=== PATIENT | female | born 1945 | race Caucasian/White ===

== ENCOUNTER → 2018-06-10 17:54 | Outpatient (CLI) | payer MEDICARE, SELFPAY ==
[2018-06-10 18:28] LABS: Absolute Lymphocyte Count 2.64 X10^3/ul (0.83-4.51); Absolute Neutrophil Count 4.7 X10^3/uL (2.0-7.7); Basophil# 0.02 X10^3/uL; Basophil% 0.2 % (0-1); Eosinophil# 0.17 X10^3/uL; Hematocrit 39.1 % (37-47); Hemoglobin 12.8 g/dl (12.0-15.0); Lymphocyte # 2.64 X10^3/ul (4.0); Lymphocyte % 30.8 % (19-41); Mean Corp Hgb Conc 32.7 g/gl (32-36); Mean Corpuscular Hgb 30.5 pg (27.0-32.0); Mean Corpuscular Volume 93.3 fL (81-99); Monocyte# 1.06 X10^3/uL; Monocyte% 12.4 % (0-10); Neutrophil # 4.66 X10^3/uL (2.7-7.7); Neutrophil % 54.5 % (47-70); Platelet Count 175 K/mm3 (150-450); RBC Distribution Width CV 12.6 % (11.6-14.6); Red Blood Count 4.19 M/mm3 (4.2-5.4); White Blood Count 8.6 K/mm3 (4.4-11.0)
[2018-06-10 18:31] LABS: POSITIVE COUNT NO; POSITIVE DIFFERENTIAL NO; POSITIVE MORPHOLOGY NO
[2018-06-10 19:10] LABS: ALB/GLOB Ratio 0.7 RATIO (0.9-2.4); AST(SGOT) 15 U/L (15-37); Alanine Aminotransfer ALT/SGPT 26 U/L (13-56); Albumin, Serum 3.2 g/dL (3.2-5.0); Alkaline Phosphatase 74 U/L (45-117); Anion Gap 7 (5-15); BUN 13 mg/dL (7-18); BUN/Creat Ratio 10.3 RATIO (10-20); Calcium,Total 8.9 mg/dL (8.5-10.1); Chloride 103 mmol/L (98-107); Creatinine, Serum 1.26 mg/dL (0.55-1.02); EST Glomerular Filtration Rate 44 mL/min (>60); Est Glom Filt Rate - Afr Amer 53 mL/min (>60); Globulin 4.5 g/dL (2.2-4.2); Glucose 145 mg/dL (74-106); Protein, Total 7.7 g/dL (6.4-8.2); Sodium Level 139 mmol/L (136-145); Uric Acid 6.2 mg/dL (2.6-6.0)
== END ==
PROVIDERS: Family Provider Internal Medicine; PCP Internal Medicine; Visit Provider Podiatrist
DX: M10.072 Idiopathic gout, left ankle and foot (principal); M19.072 Primary osteoarthritis, left ankle and foot
CPT/HCPCS: 80053; 84550; 85025

== ENCOUNTER 2018-06-22 21:34 | Emergency (ER) | payer MEDICARE, SELFPAY ==
[2018-06-22 21:35] VITALS: BP 143/93; PULSE 124; RESP 15; O2SAT 98; BMI 34.9
[2018-06-22 21:43] VITALS: O2SAT 98
[2018-06-22] MEDS: Aspirin 81 MG TAB.CHEW 324 MG PO (21:56)
[2018-06-22] MEDS: 0.9% Normal Saline 1,000 ML 150 ML IV (21:56)
[2018-06-22] MEDS: dilTIAZem 25 MG/5 ML Vial 20 MG IV BOLUS (21:56)
[2018-06-22 22:05] LABS: Absolute Lymphocyte Count 2.88 X10^3/ul (0.83-4.51); Absolute Neutrophil Count 5.6 X10^3/uL (2.0-7.7); Basophil# 0.04 X10^3/uL; Basophil% 0.4 % (0-1); Lymphocyte # 2.88 X10^3/ul (4.0); Lymphocyte % 29.1 % (19-41); Mean Corp Hgb Conc 31.7 g/gl (32-36); Mean Corpuscular Hgb 29.8 pg (27.0-32.0); Mean Platelet Vol. 12.4 fl (6.2-12.0); Monocyte# 1.16 X10^3/uL; Monocyte% 11.7 % (0-10); Neutrophil # 5.58 X10^3/uL (2.7-7.7); Neutrophil % 56.6 % (47-70); Platelet Count 190 K/mm3 (150-450); RBC Distribution Width CV 12.9 % (11.6-14.6); RBC Distribution Width SD 44.5 fl (35.1-43.9); Red Blood Count 4.36 M/mm3 (4.2-5.4); White Blood Count 9.9 K/mm3 (4.4-11.0)
[2018-06-22 22:06] LABS: POSITIVE COUNT NO; POSITIVE DIFFERENTIAL NO; POSITIVE MORPHOLOGY NO
[2018-06-22 22:24] LABS: Anion Gap 10 (5-15); BUN 20 mg/dL (7-18); BUN/Creat Ratio 13.4 RATIO (10-20); Calcium,Total 9.1 mg/dL (8.5-10.1); Chloride 102 mmol/L (98-107); Creatinine, Serum 1.49 mg/dL (0.55-1.02); EST Glomerular Filtration Rate 36 mL/min (>60); Est Glom Filt Rate - Afr Amer 44 mL/min (>60); Estimated Creatinine Clearance 33.92 ml/min; Glucose 210 mg/dL (74-106); Potassium 4.2 mmol/L (3.5-5.1); Sodium Level 138 mmol/L (136-145)
[2018-06-22 22:34] VITALS: BP 117/69; PULSE 63; RESP 18; O2SAT 97
[2018-06-22 23:00] VITALS: BP 123/56; PULSE 61; RESP 18; O2SAT 97
--- NOTE | 2018-06-22 23:20 | ED.RN ---
at approx 2245 pt converted to NSR. Called for repeat EKG and Dr De Leon made aware.
--- NOTE | 2018-06-22 23:33 | ED.VISSUMM ---
- ER Visit Summary Date of Service: 06/22/18 Chief Complaint: Chest pain and palpitations History of Present Illness: The patient is a [address] Morfin and Dr. Westfall. She has a history of paroxysmal SVT. She reports at 7:00 this evening while at rest she had the abrupt onset of palpitations. This is accompanied by a chest pressure. She reports this is 8 out of 10 severity at worst 5-10 currently. Is worsened by nothing including exertion. It is also relieved by nothing. She does report she feels mildly short of breath. No nausea, vomiting, or diaphoresis. Physical Examination: Vitals: Stable. Afebrile. General: Well-nourished and well-developed. Head: Normocephalic atraumatic. Neck: Supple, no lymphadenopathy. No JVD. Nontender. Cardiovascular: Tachycardic irregular rhythm no murmurs. Respiratory: No respiratory distress. Clear to auscultation bilaterally. Abdominal: Soft, nontender, nondistended, normal bowel sounds. No guarding, rebound, or peritoneal signs. Back: Nontender. Extremities: Nontender, no edema. Skin: Normal color, no rash. Neurologic: Alert and oriented ?3. Cranial nerves II through XII are intact. Normal strength and sensation. Psych: Normal affect. Test Results: EKG is atrial flutter at [address] changes. Repeat EKG is sinus at [address] changes. Troponin is negative. Chem-7 is more for BUN of 20, creatinine 1.49, glucose of 210. CBC is more for monocytes 12. Chest x-ray is rotated, but shows no acute disease. Emergency Department Course and Treatment: Patient history of aspirin p.o. She was given a dose of Cardizem IV. She converted shortly after this. Treatment Plan: Patient feels well and would like to go home. She was discussed with Dr. Kay. She will be discharged instructed to follow-up with Dr. Westfall and discuss this episode with him. Also discussed possibility of needing to be anticoagulated for her paroxysmal atrial fibrillation. Return to the emergency department for any worsening symptoms. Disposition: To home in improved and stable condition. Impression: 1. Atrial fibrillation with RVR. 2. Spontaneous conversion after Cardizem IV. 3. Critical care time 30 minutes. This note was generated with Dragon dictation software. It may contain incorrect words, spelling, and punctuation that were not noted in review of the chart prior to signing ED Disposition - Plan for ED Patient: Disposition: Home or Assisted Living Chief Complaint: Chest Pain Instructions: ED Paroxysmal Atrial Flutter Referrals: Guero Westfall MD [STAFF PHYSICIAN] - 5-7 Days
[2018-06-22 23:43] VITALS: BP 125/66; PULSE 68; RESP 16; O2SAT 98
== END 2018-06-22 23:43 | disposition home or self-care (01) ==
LOC: ED 22:19
PROVIDERS: Emergency Provider Emergency Medicine; Family Provider Internal Medicine; PCP Internal Medicine
DX: I48.0 Paroxysmal atrial fibrillation (principal); I48.92 Unspecified atrial flutter; I10 Essential (primary) hypertension; E78.00 Pure hypercholesterolemia, unspecified; E11.9 Type 2 diabetes mellitus without complications; M10.9 Gout, unspecified; Z79.82 Long term (current) use of aspirin; Z79.84 Long term (current) use of oral hypoglycemic drugs; Z79.01 Long term (current) use of anticoagulants; Z79.899 Other long term (current) drug therapy
CPT/HCPCS: 71045; 80048; 84484; 85025; 93005; 96361; 96374; 99284; J7030; J7040; A4216

== ENCOUNTER 2018-06-23 05:28 | Inpatient (IN) | payer MEDICARE, SELFPAY ==
[2018-06-23] VITALS (19 sets, daily range): BP systolic 99–172; BP diastolic 51–94; PULSE 54–154; RESP 8–20; TEMP 36.6–36.8; O2SAT 94–100; BMI 35.9; BMI 36.1
--- NOTE | 2018-06-23 05:43 | ED.VISSUMM ---
- ER Visit Summary Date of Service: 06/23/18 Chief Complaint: Palpitations, chest pain History of Present Illness: The patient is a 72 F palpitations and chest pain awakening her 2:30 PM. Mild dyspnea and mild nausea. Pain into left shoulder blade. History of paroxysmal SVT followed by Dr. Westfall. Patient on metoprolol 150 mg. Stress test a couple years ago no history of heart cath. No history of [place]. Patient seen here earlier in the ED less than 12 hours ago similar symptoms ported A. fib a flutter. She converted after Cardizem IV. States her chest pain symptoms went away at that time. 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 It is a mild nonproductive cough. No tobacco history. History of hypertension, diabetes, hypercholesterolemia. Records reviewed, noted atrial flutter/atrial fibrillation. 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 Discuss anticoagulation however none was started. Troponin was negative. Creatinine is 1.49. CBC is normal. Chest x-ray no infiltrates. Physical Examination: General: Alert and oriented ?3, no acute distress HEENT: Normocephalic, atraumatic. Moist mucosa membranes Neck: supple, nontender. Cardiovascular: Irregular rate and rhythm, no murmurs Respiratory: Normal breath sounds, symmetric, no distress Abdomen: Soft, nontender, nondistended Extremities: Nontender, no edema, pulses intact ?4 Neuro: no focal neurological deficits. Test Results: EKG atrial fibrillation rate of 143, slight ST depressions V4 V5 less than 1 mm. Troponin: 0.015. INR 1. PTT 30. Emergency Department Course and Treatment: Patient with recurrent A. fib with RVR on EKG. This is nonspecific ST depressions V4 V5. Presents also with chest pain. She received aspirin less than 12 hours ago on her first visit in the ED. Initial troponin was negative. I repeated troponin IX hours from the first 1, this remained negative. Given Cardizem IV 10 mg, reported worsening chest pain symptoms after initial dose. I did repeat an EKG noting atrial flutter rate of 153 with no new changes. Cardizem drip was started, states there is mild improvement of symptoms, however heart rate did not improve. Blood pressure was stable. The drip was increased to 25 mg/h, she was comfortable however reports continued chest pain up to 7-8 out of 10. Further discussion patient reports onset of symptoms was 7 PM, less than 12 hours prior to arrival. I discussed due to her symptoms for direct current cardioversion for which she agreed. Consents were obtained, risks and benefits discussed. Patient was given fentanyl and Versed, cardioverted at 150 J ?1 attempt. Repeat EKG sinus rate of 58, there is still nonspecific depressions in V3 to V5. There is no elevations. Discuss with hospitalist for admission to PCU due to recurrent atrial fibrillation and chest pain. Patient was given Lovenox subcu with a chads score of 2 currently. Treatment Plan: [] Disposition: Admission Impression: 1. Recurrent A. fib with RVR 2. Status post DCCV 3. Chest pain This note was generated with APROOF[employer] dictation software. It may contain incorrect words, spelling, and punctuation that were not noted in review of the chart prior to signing ED Disposition - Plan for ED Patient: Disposition: Acute Care Hospital [facility] Chief Complaint: Palpitations Diagnosis: Atrial fibrillation and flutter, Direct current cardioversion, Chest pain Referrals: Nikita Morfin MD [Primary Care Provider] -
[2018-06-23] MEDS: dilTIAZem 25 MG/5 ML Vial 10 MG IV BOLUS (05:47)
[2018-06-23 06:20] LABS: Prothrombin Time (Protime)PT. 12.8 SECONDS (11.7-14.9)
[2018-06-23] MEDS: fentaNYL 100 MCG/2 ML Ampul IV (07:14)
[2018-06-23] MEDS: Midazolam 2 MG/2 ML Syringe IV (07:15)
[2018-06-23] MEDS: Enoxaparin 120 MG/0.8 ML Syringe SC (07:27)
[2018-06-23] MEDS: Ondansetron 4 MG/2 ML Vial IV (07:40)
--- NOTE | 2018-06-23 09:30 | PCM.HP.STD ---
Problem List (1) Atrial fibrillation and flutter Status: Acute (2) Chest pain Status: Acute (3) CKD (chronic kidney disease) Status: Chronic (4) PSVT (paroxysmal supraventricular tachycardia) Status: Chronic (5) Hyperlipidemia Status: Chronic Qualifiers: (6) Benign essential HTN Status: Chronic (7) Borderline diabetes mellitus Status: Chronic History of Present Illness Date of Admission: 06/23/18 Chief Complaint: Chest pain. The patient is a 72 year old F with past medical history as mentioned above presented to the emergency department because of chest pain. Her illness started yesterday evening around 7 PM when she was watching TV, started having left-sided chest pain, extends to the left shoulder blade, squeezing pain, 6 or 7 severity, associated with mild shortness of breath and palpitation and without aggravating or relieving factors. She does have history of paroxysmal SVT and she was instructed to use ice pack on her neck as well as to take an extra tablet of metoprolol when she has those episodes of chest pain with palpitation. Those 2 measures did not improve her chest pain yesterday. She came to the emergency department, was evaluated, started on IV Cardizem drip and she converted back to sinus rhythm and she was discharged home. Around 12:30 AM this morning, she woke up from sleep because of chest pain which is similar episode that happened yesterday evening with left-sided chest pain, squeezing pain, 8 oxygen severity, that was compared to yesterday, associated with palpitation and mild shortness of breath and without aggravating or relieving factors. In the emergency department, she was found to be in atrial flutter with RVR, heart rate has been in the 150s. She was started on IV Cardizem drip and continued to have chest pain for which cardioversion indicated. She underwent direct current cardioversion and she converted back to sinus rhythm. Initial EKG upon arrival to ER revealed atrial flutter with RVR, rate was in the 150s and without acute ischemic changes. Repeat EKG after the cardioversion revealed normal sinus rhythm without evidence of acute ischemic changes. Routine blood work from yesterday reviewed, revealed creatinine 1.49, otherwise normal. Troponin was negative. Chest x-ray showed probable minimal pulmonary vascular congestion more on the right side. She is being admitted for atrial flutter with RVR status post cardioversion and chest pain. Past Medical History Past Medical History (Chronic Problems): Chronic Problems (Last Updated 04/10/18 @ 14:14 by Citlaly Diaz) CKD (chronic kidney disease) (Chronic) PSVT (paroxysmal supraventricular tachycardia) (Chronic) Hyperlipidemia (Chronic) Benign essential HTN (Chronic) Borderline diabetes mellitus (Chronic) Medical History: Medical History (Last Updated 04/10/18 @ 14:14 by Citlaly Diaz) CKD (chronic kidney disease) (Chronic) N18.9 PSVT (paroxysmal supraventricular tachycardia) (Chronic) I47.1 Hyperlipidemia (Chronic) E78.5 Benign essential HTN (Chronic) I10 Borderline diabetes mellitus (Chronic) R73.03 Back pain M54.9 Hip pain M25.559 EMILIANO (obstructive sleep apnea) G47.33 Osteoarthritis M19.90 History of echocardiogram Onset Date: ~12/2012 Z92.89 EF: 57% @ [facility] Allergies codeine Adverse Reaction (Severe, Verified 06/23/18 05:32) Mental status change erythromycin base Adverse Reaction (Severe, Verified 06/23/18 05:32) Vomiting Home Medications: Ambulatory Orders Medication Instructions Recorded aspirin 81 mg tablet,delayed 81 mg PO QDAY 10/09/17 release atorvastatin 10 mg tablet 10 mg PO QHS 10/09/17 fluticasone 50 mcg/actuation nasal 100 mcg INTRANASAL QDAY PRN 10/09/17 spray,suspension metformin 500 mg tablet 500 mg PO BID 10/09/17 metoprolol tartrate 100 mg tablet 150 mg PO BID tab 10/09/17 multivitamin tablet 1 tab PO QDAY 10/09/17 [id number]-[id number]-hrb 1 tab PO QDAY ea 10/10/17 149-hyalur 500 mg-500 mg-66.7 mg tablet Losartan Potassium [Losartan 100 mg PO DAILY 06/23/18 Potassium] Surgical History: Surgical History (Last Reviewed 04/10/18 @ 14:13 by Citlaly Diaz) H/O arthroscopy of left knee Z98.890 History of dilation and curettage Z98.890 History of umbilical hernia repair Z98.890, Z87.19 S/P foot surgery, right Z98.890 History of appendectomy Z98.890, Z90.49 Surgical History: arthroscopy, knee, herniorrhaphy, - - D&C. 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 Lives: Spouse/ Significant Other Smoking Status: Never smoker Alcohol: None Drugs: None - *Family History Maternal Family History: Family History (Last Reviewed 04/10/18 @ 14:13 by Citlaly Diaz) Mother Hypertension Father CAD (coronary artery disease) History Items: No pertinent history Paternal Family History: Family History (Last Reviewed 04/10/18 @ 14:13 by Citlaly Diaz) Mother Hypertension Father CAD (coronary artery disease) History Items: No pertinent history Review of Systems Constitutional: Denies: Anorexia, Chills, Fever, Weakness Eyes: Denies: Blurred vision, Double vision, Drainage HEENT: Denies: Difficulty Hearing, Ear Pain, Eye Pain, Nasal Congestion, Sore Throat Cardiovascular: Reports: Chest Pain, Chest Pressure, Palpitations. Denies: Heaviness, Light Headedness, Paroxysmal Noc. Dyspnea, Syncope Respiratory: Reports: Shortness of Breath. Denies: Cough, Pleuritic Pain, Sputum production, Wheezing Gastrointestinal: Denies: Abdominal Pain, Constipation, Diarrhea, Nausea, Vomiting Genitourinary: Denies: Dysuria, Frequency, Hematuria Musculoskeletal: Denies: Arm Pain, Back Pain, Foot Pain Skin: Denies: Dryness, Rash Neurological: Denies: Balance problems, Double vision, Change in Speech, Slurred speech, Confusion, Headaches, Incoordination, Tingling Psychiatric: Denies: Anxiety, Depression Endocrine: Denies: Change in Body Habitus, Polydipsia VTE Information - Inpt Only VTE Present on Admission: No VTE Mechan Device Prophylaxis: None VTE Pharm Prophylaxis ordered?: No Patient Problems: Active and Suspected Problems (Last Updated 06/23/18 @ 09:42 by Nicole Lau MD) Atrial fibrillation and flutter (Acute) Chest pain (Acute) - Physical Exam General: Alert, Oriented x3, Cooperative, No apparent distress HEENT: Atraumatic, PERRLA, EOMI, Normocephalic Oral: Moist Mucosa, No Gingival or Mucosal Lesions/ Ulcerations Neck: Supple, No JVD, Negative Carotid Bruits, Trachea Midline, Thyroid Normal Size and Texture Lungs: Clear to auscultation, No rhonchi, No wheeze, No rales, Diminished Cardiovascular: Regular rate, Regular Rhythm, Normal S1, Normal S2, PMI Normal Abdomen: Bowel Sounds Present, Soft, Non Tender, Non-Distended, No Hepato-splenomegaly Extremities: No clubbing, No cyanosis, No edema Skin: No rashes, No breakdown Musculoskeletal: No Tenderness to Palpation of Joints or Extremities Lymphatic: No Cervical, Supraclavicular, or Inguinal Adenopathy Neurological: Cranial nerves II-XII grossly intact, Motor Exam 5/5 strength throughout Psych/Mental Status: Normal Affect, Appropriate, Alert and oriented to time, place, person, mood and affect Vital Signs Temp Pulse Resp BP Pulse Ox 98.0 F 60 20 H 99/52 L 98 06/23/18 08:11 06/23/18 08:11 06/23/18 08:11 06/23/18 08:11 06/23/18 08:11 Oxygen Flow Rate (L/min) 2 Oxygen Delivery Method Nasal Cannula Weight: 230 lb 9.656 oz Body Mass Index (BMI) 36.1 Laboratory Tests Past 24 Hrs 06/23/18 06/23/18 08:28 08:28 Magnesium Pending Troponin I 0.025 TSH Pending Laboratory Tests 06/23/18 06/23/18 06/23/18 Range/Units 08:28 08:28 05:35 PT 12.8 (11.7-14.9) SECONDS INR 1.0 APTT 30.0 (24.1-36.2) Seconds Magnesium 1.2 L (1.6-2.6) mg/dL Troponin I 0.025 (<0.045) ng/mL TSH 3.28 (0.358-3.74) uIU/mL 06/23/18 Range/Units 05:35 PT (11.7-14.9) SECONDS INR APTT (24.1-36.2) Seconds Magnesium (1.6-2.6) mg/dL Troponin I < 0.015 (<0.045) ng/mL TSH (0.358-3.74) uIU/mL Assessment/Plan All Active Problems (Last Updated 06/23/18 @ 09:42 by Nicole Lau MD) Atrial fibrillation and flutter (Acute) Chest pain (Acute) This is a 72 years old female patient presented to the emergency department because of chest pain and palpitation, found to have atrial flutter with RVR, was treated with IV Cardizem drip, has been having persistent chest pain for which cardioversion indicated and she underwent direct current cardioversion that resulted normal sinus rhythm. #1 atrial flutter with RVR: Status post cardioversion, converted back to sinus rhythm and now she is in sinus rhythm, heart rate has been 60s, blood pressure stable. Initially, heart rate was in the 150s. Initial EKG revealed atrial flutter with RVR, no acute ischemic changes. Repeat EKG after cardioversion revealed normal sinus rhythm, no acute ischemic changes. At this time, chest pain significantly improved. Her vital signs are stable. Troponin was negative. Routine blood work from yesterday reviewed, revealed potassium of 4.2 which is normal, creatinine 1.49, otherwise normal. Chest x-ray showed possible minimal pulmonary vascular congestion on the right side. Plan: Admit to PCU, cardiac monitoring, serial cardiac enzymes, repeat EKG tomorrow morning, continue metoprolol for rate control, start renally adjusted dose of therapeutic Lovenox, IV fluids, replace magnesium, TSH, 2D echocardiogram, repeat CBC and BMP tomorrow morning, cardiology consult, PT OT evaluation and treatment. #2 chest pain: This is probably secondary to above, underlying CAD, be ruled out. EKG post cardioversion revealed normal sinus rhythm without evidence of acute ischemic changes. Troponin is negative. Plan: Cardiac monitoring, serial cardiac enzymes, repeat EKG tomorrow morning, 2D echocardiogram, as needed sublingual nitroglycerin, Tylenol as needed. #3 hypomagnesemia: Replace magnesium with IV magnesium sulfate, repeat serum next morning. Serum potassium is normal. #4 chronic kidney disease: Appeared to be stage III. She has only 3 BMPs in her chart. Her creatinine on July, was 1.1, on May, it was 1.26 and today is 1.49. Plan: Gentle IV fluids for hydration, input output chart, repeat BMP tomorrow morning. #5 history of paroxysmal SVT: She has been on metoprolol at home. At this time, she is in a flutter with RVR. #6 hypertension: Blood pressure stable, continue losartan and metoprolol. #7 type 2 diabetes mellitus: ADA diet, Accu-Cheks, insulin sliding scale, hold metformin. #8 hyperlipidemia: Continue statins. #9 DVT prophylaxis: Therapeutic subcu Lovenox. This note was generated with Pi-Cardia dictation software. It may contain incorrect words, spelling, and punctuation that were not noted in checking the note before signing. Code Visit Inpatient E&M: 97782 Init Hosp L3
[2018-06-23 09:34] LABS: Magnesium 1.2 mg/dL (1.6-2.6); Thyroid Stim Hormone (TSH) 3.28 uIU/mL (0.358-3.74)
[2018-06-23] MEDS: Metoprolol Tartrate 100 MG Tablet 150 MG PO ×2 (10:23→21:09)
[2018-06-23] MEDS: 0.9% Normal Saline 1,000 ML 75 ML IV (10:23)
[2018-06-23] MEDS: Losartan Potassium 100 MG Tablet PO (10:23)
[2018-06-23] MEDS: Aspirin E.C. 81 MG Tablet PO (10:23)
[2018-06-23] MEDS: CLARIFY ORDER NOTE (10:37)
--- NOTE | 2018-06-23 12:25 | PCM.CONS.C ---
Problem List (1) Atrial fibrillation and flutter Status: Acute (2) Paroxysmal atrial flutter Status: Acute Reason for Consult Date of Consultation: 06/23/18 History of Present Illness: The patient is a 72 year old F with past medical history as mentioned above presented to the emergency department because of chest pain. Her illness started yesterday evening around 7 PM when she was watching TV, started having left-sided chest pain, extends to the left shoulder blade, squeezing pain, 6 or 7 severity, associated with mild shortness of breath and palpitation and without aggravating or relieving factors. She does have history of paroxysmal SVT and she was instructed to use ice pack on her neck as well as to take an extra tablet of metoprolol when she has those episodes of chest pain with palpitation. Those 2 measures did not improve her chest pain yesterday. She came to the emergency department, was evaluated, started on IV Cardizem drip and she converted back to sinus rhythm and she was discharged home. Around 12:30 AM this morning, she woke up from sleep because of chest pain which is similar episode that happened yesterday evening with left-sided chest pain, squeezing pain, 8 oxygen severity, that was compared to yesterday, associated with palpitation and mild shortness of breath and without aggravating or relieving factors. In the emergency department, she was found to be in atrial flutter with RVR, heart rate has been in the 150s. She was started on IV Cardizem drip and continued to have chest pain for which cardioversion indicated. She underwent direct current cardioversion and she converted back to sinus rhythm. Initial EKG upon arrival to ER revealed atrial flutter with RVR, rate was in the 150s and without acute ischemic changes. Repeat EKG after the cardioversion revealed normal sinus rhythm without evidence of acute ischemic changes. Routine blood work from yesterday reviewed, revealed creatinine 1.49, otherwise normal. Troponin was negative. Chest x-ray showed probable minimal pulmonary vascular congestion more on the right side. She was admitted for atrial flutter with RVR status post cardioversion and chest pain. A tthe time of my interview at 12:30 she was asymptomatic and in NSR Past Medical History Allergies/Adverse Reactions: Allergies codeine Adverse Reaction (Severe, Verified 06/23/18 05:32) Mental status change erythromycin base Adverse Reaction (Severe, Verified 06/23/18 05:32) Vomiting Home Medications: Ambulatory Orders Medication Instructions Recorded aspirin 81 mg tablet,delayed 81 mg PO QDAY 10/09/17 release atorvastatin 10 mg tablet 10 mg PO QHS 10/09/17 fluticasone 50 mcg/actuation nasal 1 spray INTRANASAL QDAY 10/09/17 spray,suspension metformin 500 mg tablet 500 mg PO BID 10/09/17 metoprolol tartrate 100 mg tablet 150 mg PO BID tab 10/09/17 multivitamin tablet 1 tab PO QDAY 10/09/17 [id number]-ewf-[id number]-hrb 1 tab PO QDAY ea 10/10/17 149-hyalur 500 mg-500 mg-66.7 mg tablet Losartan Potassium [Losartan 100 mg PO DAILY 06/23/18 Potassium] Past Medical History (Chronic Problems): Chronic Problems (Last Updated 06/23/18 @ 09:42 by Nicole Lau MD) CKD (chronic kidney disease) (Chronic) PSVT (paroxysmal supraventricular tachycardia) (Chronic) Hyperlipidemia (Chronic) Benign essential HTN (Chronic) Borderline diabetes mellitus (Chronic) Surgical History: arthroscopy, knee, herniorrhaphy, - - D&C. 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 - *Family History Maternal Family History: Family History (Last Reviewed 04/10/18 @ 14:13 by Citlaly Diaz) Mother Hypertension Father CAD (coronary artery disease) History Items: No pertinent history Paternal Family History: Family History (Last Reviewed 04/10/18 @ 14:13 by Citlaly Diaz) Mother Hypertension Father CAD (coronary artery disease) History Items: No pertinent history Lives: Spouse/ Significant Other Smoking Status: Never smoker Alcohol: None Drugs: None Review of Systems - Review of Systems General: Denies: Fever, Night Sweats, Fatigue Cardiovascular: Denies: Chest Discomfort, Shortness of Breath, Orthopnea, PND, Peripheral Edema, Palpitations - 12 system reviewed. Pertinent positive and negative ones are per HPI., Lightheadedness, Dizziness, Near Syncope, Syncope Respiratory: Denies: Cough, Sputum Production, Hemoptysis Gastrointestinal: Denies: Hematemesis, Hematochezia, Melena Genitourinary: Denies: Dysuria, Hematuria Skin: Denies: Rash Objective: Vital Signs Temp Pulse Resp BP Pulse Ox 98.0 F 67 20 H 99/52 L 98 06/23/18 08:11 06/23/18 11:00 06/23/18 08:11 06/23/18 08:11 06/23/18 08:11 Oxygen Flow Rate (L/min) 2 Oxygen Delivery Method Nasal Cannula Weight: 104.6 kg Body Mass Index (BMI) 36.1 General: Oriented x 3, No Acute Distress HEENT: Atraumatic Neck: Supple, No JVD Lungs: Clear to auscultation Cardiovascular: Regular Rhythm, No Murmurs Vascular: No Carotid Bruits Abdomen: Soft, Non Tender, Obese Extremities: No Cyanosis, No edema Musculoskeletal: No Tenderness Skin: No Rashes Neurological: No Focal Motor or Sensory Deficit Psych/Mental Status: Appropriate 06/23/18 08:28: Magnesium 1.2 L 06/23/18 08:28: Troponin I 0.025 Rhythm: EKG: A. Flutter, converted to Sinus, ECHO: Stress Test: Cardiac Cath: PCI: CT Surgery: Holter monitor: EPS: PPM: CXR: Chest CT Scan: Assessment/Plan Paroxysmal A. Flutter, [id number]: 4. Suggest Oral ,eds for Rate , paroxesm control. Adding CCB, i.e. Verapamil SR, 1290 mg daily, adjust BB for BP, HR control. Suggest full anticoagulation, discussed in detail, patient agreeable with NOAC, suggest Xarelto, 20 mg daily. DC home per attending. FU with Dr. Malou ritchie 2-3 weeks.
[2018-06-23 12:51] LABS: Bedside Glucose 137 mg/dL (70-110)
[2018-06-23 16:56] LABS: Bedside Glucose 107 mg/dL (70-110)
[2018-06-23] MEDS: Rivaroxaban 15 MG Tablet PO (19:02)
[2018-06-23] MEDS: Atorvastatin Calcium 10 MG Tablet PO (21:09)
[2018-06-23 21:15] LABS: Bedside Glucose 138 mg/dL (70-110)
[2018-06-24] VITALS (9 sets, daily range): BP systolic 131–133; BP diastolic 63–67; PULSE 61–74; RESP 18; TEMP 36.8–37.2; O2SAT 96–98
[2018-06-24] MEDS: 0.9% Normal Saline 1,000 ML 75 ML IV (00:47)
[2018-06-24 06:21] LABS: Bedside Glucose 120 mg/dL (70-110)
[2018-06-24 06:23] LABS: Absolute Lymphocyte Count 2.23 X10^3/ul (0.83-4.51); Absolute Neutrophil Count 3.5 X10^3/uL (2.0-7.7); Basophil# 0.03 X10^3/uL; Basophil% 0.5 % (0-1); Eosinophil# 0.19 X10^3/uL; Eosinophils% 2.9 % (0-5); Hematocrit 35.8 % (37-47); Hemoglobin 11.5 g/dl (12.0-15.0); Lymphocyte # 2.23 X10^3/ul (4.0); Lymphocyte % 33.7 % (19-41); Mean Corp Hgb Conc 32.1 g/gl (32-36); Mean Corpuscular Hgb 30.5 pg (27.0-32.0); Mean Platelet Vol. 12.4 fl (6.2-12.0); Monocyte# 0.68 X10^3/uL; Monocyte% 10.3 % (0-10); Neutrophil # 3.47 X10^3/uL (2.7-7.7); Neutrophil % 52.3 % (47-70); Platelet Count 133 K/mm3 (150-450); RBC Distribution Width CV 12.8 % (11.6-14.6); RBC Distribution Width SD 42.9 fl (35.1-43.9); Red Blood Count 3.77 M/mm3 (4.2-5.4); White Blood Count 6.6 K/mm3 (4.4-11.0)
[2018-06-24 06:32] LABS: POSITIVE COUNT NO; POSITIVE DIFFERENTIAL NO; POSITIVE MORPHOLOGY NO
[2018-06-24 06:56] LABS: Anion Gap 9 (5-15); BUN 13 mg/dL (7-18); BUN/Creat Ratio 10.8 RATIO (10-20); Chloride 109 mmol/L (98-107); EST Glomerular Filtration Rate 47 mL/min (>60); Est Glom Filt Rate - Afr Amer 57 mL/min (>60); Glucose 115 mg/dL (74-106); Potassium 4.1 mmol/L (3.5-5.1); Sodium Level 145 mmol/L (136-145)
[2018-06-24] MEDS: Metoprolol Tartrate 100 MG Tablet 150 MG PO (09:09)
[2018-06-24] MEDS: Losartan Potassium 100 MG Tablet PO (09:09)
[2018-06-24] MEDS: dilTIAZem CD 120 MG Capsule PO (09:09)
[2018-06-24] MEDS: Aspirin E.C. 81 MG Tablet PO (09:09)
--- NOTE | 2018-06-24 10:27 | PCM.DC ---
- Discharge Diagnoses Current Active Problems: Current Active and Chronic Problems (Last Updated 06/23/18 @ 09:42 by Nicole Lau MD) Paroxysmal atrial flutter (Acute) Atrial fibrillation and flutter (Acute) Chest pain (Acute) You will use the following diet at home:: Calorie/Carbohydrate Controlled (specify 1200, 1400, etc) - 1800 KATHARINE., Cardiac Your food should be the consistency of: Regular Discharge Activity: Return to Normal Activity Weight Bearing Status: Weight bearing as tolerated Call your doctor if you observe: Fever of 101 or Higher, Shortness of breath, Dizziness, Fainting spells, Chest pain, Increased palpitations (irregular heartbeat), Uncontrolled pain Instructions: Rivaroxaban Oral tablet, What Is Atrial Flutter/Atrial Fibrillation? Allergies/Adverse Reactions: Allergies codeine Adverse Reaction (Severe, Verified 06/23/18 05:32) Mental status change erythromycin base Adverse Reaction (Severe, Verified 06/23/18 05:32) Vomiting Medications to take at Discharge aspirin 81 mg tablet,delayed release 81 mg PO QDAY 10/09/17 atorvastatin 10 mg tablet 10 mg PO QHS 10/09/17 fluticasone 50 mcg/actuation nasal spray,suspension 1 spray INTRANASAL QDAY 10/09/17 metformin 500 mg tablet 500 mg PO BID 10/09/17 metoprolol tartrate 100 mg tablet 150 mg PO BID tab 10/09/17 multivitamin tablet 1 tab PO QDAY 10/09/17 lcmivrybwao-aon-rhrzculee-hrb 149-hyalur 500 mg-500 mg-66.7 mg tablet 1 tab PO QDAY ea 10/10/17 Losartan Potassium 100 mg PO DAILY 06/23/18 Diltiazem CD [Cardizem CD] 120 mg PO DAILY #30 cap 06/24/18 Rivaroxaban [Xarelto] 15 mg PO DAILY@1700 #90 tab 06/24/18 The following prescriptions were given: Diltiazem CD [Cardizem CD] 120 mg PO DAILY #30 cap Rivaroxaban [Xarelto] 15 mg PO DAILY@1700 #90 tab Primary Care Physician: Nikita Morfin MD [Primary Care Provider] - Please follow up with your Primary Care Physician in: 1 WEEK. Test Results: Test results from this visit will be discussed in further detail at your follow-up appointment, if applicable. Please Follow Up With: Moodispaw,Guero, MD When: please call his office.
--- NOTE | 2018-06-24 10:43 | CASEMGMT ---
Face to Face with patient for initial transition planning/care coordination assessment. [facility] introduced self and role at [facility], pt voices understanding and consents to assessment at this time. Pt is lying in bed in no distress at this time. Pt is A/O x4 at this time and answers all questions appropriately at this time. Care providers, pharmacy, and demographics verified. See attached link. Pt voices no further concerns/needs at this time. Advised pt to ask for CM if any further questions/concerns/needs arise, voices understanding. CM to check Xarelto for pt prior to discharge. SW to f/u with pt for AD info. PLAN: Home [facility]
[2018-06-24 11:30] LABS: Bedside Glucose 166 mg/dL (70-110)
--- NOTE | 2018-06-24 11:32 | CASEMGMT ---
Call to pt's pharmacy by Rex, charger, and per pharmacy, for one month of Xarelto, pt's co-pay will be over $200 and for 90 day supply over $300. Pt given 30 day free trial coupon at this time, voices understanding. Pt advised to f/u with Dr. Westfall in 2-3weeks in regards to anderson of med and ongoing afib and pt states she would like to make her own appt at this time after offer for this [facility] to set up appt prior to discharge. Also, advised pt that she can call [employer] to try and get a discount on co-pay, voices understanding. Message left with nurse at [facility] to notify them of pt co-pay. Pt provided Advance directive paperwork at this time and states would like to meet with SW to complete paperwork at this time. Yesenia HERNANDEZ aware and voices understanding. [facility]
--- NOTE | 2018-06-24 12:16 | CASEMGMT ---
Social Work Received a referral from RN JESUSITA that pt is interested in Advance Directives. 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 Pt affirms she wants to complete forms. SW assisted with completing forms. Copy placed on chart and original given to pt with instructions to give copy to PCP and person listed as HCPOA. No further questions at this time. SW remains available should needs arise. MISA Kessler
--- NOTE | 2018-06-24 15:18 | PCM.DC.SUM ---
Discharge Date and Diagnosis - Problem List Patient Problems: Active and Suspected Problems (Last Updated 06/23/18 @ 09:42 by Nicole Lau MD) Paroxysmal atrial flutter (Acute) Atrial fibrillation and flutter (Acute) Chest pain (Acute) Date of Admission: 06/23/18 Date of Discharge: 06/24/18 - Primary Discharge Diagnosis Active and Suspected Problems (Last Updated 06/23/18 @ 09:42 by Nicole Lau MD) #1 atrial flutter with RVR, status post cardioversion. #2 chest pain. #3 hypomagnesemia. - Secondary Discharge Diagnosis Chronic Problems (Last Updated 06/23/18 @ 09:42 by Nicole Lau MD) CKD (chronic kidney disease) (Chronic) PSVT (paroxysmal supraventricular tachycardia) (Chronic) Hyperlipidemia (Chronic) Benign essential HTN (Chronic) Borderline diabetes mellitus (Chronic) Hospital Course and Treatment Procedures: 2-D Echocardiogram, Cardioversion, EKG Summary of Care Provided: Patient seen and examined on the day of discharge and appeared to be stable to be discharged home. She remained asymptomatic, no complaint. She remained in sinus rhythm, rate is controlled, blood pressure stable. - Physical Exam General: Alert, Oriented x3, Cooperative, No apparent distress. HEENT: Atraumatic, PERRLA, EOMI. Neck: Supple, No JVD, Negative Carotid Bruits, Trachea Midline, Thyroid Normal. Lungs: Clear to auscultation, Normal air movement, No rhonchi, No wheeze, No rales. Cardiovascular: Regular rate, Regular Rhythm, Normal S1, Normal S2, PMI Normal. Abdomen: Bowel Sounds Present, Soft, Non Tender, Non-Distended, No Hepato-splenomegaly. Extremities: No clubbing, No cyanosis, No edema Skin: No rashes, No breakdown Neurological: Neuro grossly intact Vital Signs are stable. Hospital course: The patient is a 72 year old F presented to the emergency department because of chest pain and palpitation, found to have atrial flutter with RVR. Her EKG revealed atrial flutter with RVR and without acute ischemic changes. She was started on IV Cardizem drip and her chest pain did not improve and she continued to complain of persistent chest pain. Cardioversion dictated. She underwent direct current cardioversion which resulted in to conversion to normal sinus rhythm. Patient was admitted to the floor, monitored and she had serial cardiac enzymes which were negative. Her routine blood work was remarkable for creatinine of 1.49 which came down to 1.20 with IV fluids and she does have a history of chronic kidney disease. Her serum electrolytes including sodium potassium was normal but her magnesium was low. She received IV magnesium sulfate and her magnesium replaced and corrected. After cardioversion, patient remained in sinus rhythm, remained asymptomatic and her vital signs were stable. Cardiology consulted and recommended to start calcium channel blockers as well as Xarelto for anti-regulation. 2D echocardiogram revealed ejection fraction 65%, mild MR, mild TR, RVSP of 52. Patient discharged home in a stable medical condition, continued on metoprolol and started on Cardizem for rate control, started on Xarelto for anticoagulation, continued on her other home medications, recommended follow-up with PCP in 1 week and follow-up with cardiology in 2-3 weeks. Discharge Activity: Return to Normal Activity Weight Bearing Status: Weight bearing as tolerated Call your doctor if you observe: Fever of 101 or Higher, Shortness of breath, Dizziness, Fainting spells, Chest pain, Increased palpitations (irregular heartbeat), Uncontrolled pain Home Medications: Medications to take at Discharge aspirin 81 mg tablet,delayed release 81 mg PO QDAY 10/09/17 atorvastatin 10 mg tablet 10 mg PO QHS 10/09/17 fluticasone 50 mcg/actuation nasal spray,suspension 1 spray INTRANASAL QDAY 10/09/17 metformin 500 mg tablet 500 mg PO BID 10/09/17 metoprolol tartrate 100 mg tablet 150 mg PO BID tab 10/09/17 multivitamin tablet 1 tab PO QDAY 10/09/17 kofrsodzbvy-ooa-zrjyvmvdh-hrb 149-hyalur 500 mg-500 mg-66.7 mg tablet 1 tab PO QDAY ea 10/10/17 Losartan Potassium 100 mg PO DAILY 06/23/18 Diltiazem CD [Cardizem CD] 120 mg PO DAILY #30 cap 06/24/18 Rivaroxaban [Xarelto] 15 mg PO DAILY@1700 #90 tab 06/24/18 Following Prescrptions Were Given to Patient: Diltiazem CD [Cardizem CD] 120 mg PO DAILY #30 cap Rivaroxaban [Xarelto] 15 mg PO DAILY@1700 #90 tab Primary Care Physician: Nikita Morfin MD [Primary Care Provider] - Please follow up with your Primary Care Physician in: 1 WEEK. Please Follow Up With: Guero Westfall MD When: please call his office. Patient Instructions: Rivaroxaban Oral tablet, What Is Atrial Flutter/Atrial Fibrillation? Disposition: Home Minutes spent on discharge:: 28 Patient Condition:: Stable Medical Necessity - Tobacco Use Smoking Status: Never smoker Meaningful Use Info Meaningful Use Diagnoses (Choose all that apply): None applicable Code Visit Inpatient E&M: 49585 Disch Hosp
[2018-06-24] MEDS: Rivaroxaban 15 MG Tablet PO (16:18)
== END 2018-06-24 16:25 | disposition home or self-care (01) | DRG 310 ==
LOC: ED 05:42 → PCU 07:30
PROVIDERS: Admitting Provider Hospitalist; Emergency Provider Emergency Medicine; Family Provider Internal Medicine; PCP Internal Medicine; Visit Provider Hospitalist
DX: I48.92 Unspecified atrial flutter (principal); I12.9 Hypertensive chronic kidney disease with stage 1 through stage 4 chronic kidney disease, or unspecified chronic kidney disease; E78.5 Hyperlipidemia, unspecified; M19.90 Unspecified osteoarthritis, unspecified site; E83.42 Hypomagnesemia; N18.9 Chronic kidney disease, unspecified; R07.9 Chest pain, unspecified; I47.1 Supraventricular tachycardia; I48.0 Paroxysmal atrial fibrillation; E11.22 Type 2 diabetes mellitus with diabetic chronic kidney disease; Z79.01 Long term (current) use of anticoagulants; Z79.82 Long term (current) use of aspirin; Z79.84 Long term (current) use of oral hypoglycemic drugs; Z79.899 Other long term (current) drug therapy
CPT/HCPCS: 36415; 71045; 80048; 82962; 83735; 84443; 84484; 85025; 85610; 85730; 92960; 93005; 93306; 96361; 96374; 99152; 99284; 99285; J7030; J7040; A4216; J2405

== ENCOUNTER 2018-08-20 07:40 | Outpatient (RCR) | payer MEDICARE, SELFPAY ==
[2018-07-28 10:34] LABS: International Normalized Ratio 1.1; Prothrombin Time (Protime)PT. 13.8 SECONDS (11.7-14.9)
[2018-08-06 10:43] LABS: International Normalized Ratio 1.9; Prothrombin Time (Protime)PT. 21.4 SECONDS (11.7-14.9)
[2018-08-20 10:45] LABS: International Normalized Ratio 2.4; Prothrombin Time (Protime)PT. 26.2 SECONDS (11.7-14.9)
== END 2018-08-20 09:00 | disposition home or self-care (01) ==
LOC: MTLAB 07:40
PROVIDERS: Family Provider Internal Medicine; PCP Internal Medicine; Referring Provider Physician Assistant Medical; Visit Provider Physician Assistant Medical
DX: I48.92 Unspecified atrial flutter (principal)
CPT/HCPCS: 36415; 85610

== ENCOUNTER 2018-09-03 07:31 | Outpatient (RCR) | payer MEDICARE, SELFPAY ==
[2018-09-03 10:11] LABS: International Normalized Ratio 2.3; Prothrombin Time (Protime)PT. 25.3 SECONDS (11.7-14.9)
== END 2018-09-03 08:00 | disposition home or self-care (01) ==
LOC: MTLAB 07:31
PROVIDERS: Family Provider Internal Medicine; PCP Internal Medicine; Referring Provider Physician Assistant Medical; Visit Provider Physician Assistant Medical
DX: I48.92 Unspecified atrial flutter (principal)
CPT/HCPCS: 36415; 85610

== ENCOUNTER 2018-09-24 07:34 | Outpatient (RCR) | payer MEDICARE, SELFPAY ==
[2018-07-03 10:24] VITALS: BMI 35.5
[2018-09-24 10:31] LABS: International Normalized Ratio 2.4; Prothrombin Time (Protime)PT. 26.2 SECONDS (11.7-14.9)
== END 2018-09-24 08:00 | disposition home or self-care (01) ==
LOC: MTLAB 07:34
PROVIDERS: Family Provider Internal Medicine; PCP Internal Medicine; Referring Provider Physician Assistant Medical; Visit Provider Physician Assistant Medical
DX: I48.92 Unspecified atrial flutter (principal)
CPT/HCPCS: 36415; 85610

== ENCOUNTER 2018-10-22 07:54 | Outpatient (RCR) | payer MEDICARE, SELFPAY ==
[2018-10-02 10:11] VITALS: BMI 35.9
[2018-10-22 10:36] LABS: Prothrombin Time (Protime)PT. 22.9 SECONDS (11.7-14.9)
== END 2018-10-22 09:00 | disposition home or self-care (01) ==
LOC: MTLAB 07:54
PROVIDERS: Family Provider Internal Medicine; PCP Internal Medicine; Referring Provider Physician Assistant Medical; Visit Provider Physician Assistant Medical
DX: I48.92 Unspecified atrial flutter (principal)
CPT/HCPCS: 36415; 85610

== ENCOUNTER → 2018-10-23 06:26 | Outpatient (CLI) | payer MEDICARE, SELFPAY ==
[2018-10-02 10:11] VITALS: BMI 35.9
--- NOTE | 2018-10-23 09:46 | STRESSREP_ITS ---
Stress Test Report Date: 10/23/2018 Procedure: Pharmacologic stress nuclear imaging study Indications: Atrial fibrillation Consent: Per the patient Procedure: The patient underwent pharmacologic (Regadenoson) evaluation with a peak heart rate of 85 beats per minute (58 predicted maximal heart rate) and a peak blood pressure of 178/84 mmHg. The baseline ECG demonstrated sinus bradycardia: Nonspecific ST segment abnormality. The peak pharmacologic ECG demonstrated no obvious ECG changes. There were no cardiac dysrhythmias pretest, during pharmacologic infusion, or recovery. There was no complaint of chest discomfort during pharmacologic infusion or recovery. The examination was discontinued secondary to completion of protocol. Impression: 1. Pharmacologic (Regadenoson) evaluation 2. Peak pharmacologic ECG with no obvious ECG changes. 3. There were no cardiac dysrhythmias pretest, during pharmacologic infusion, or recovery. 4. Nuclear images pending Myocardial perfusion imaging study: Technique: The patient was injected with 14.8 millicuries of technetium 99m Cardiolite and subsequently rest SPECT Cardiolite nuclear imaging was obtained in the horizontal long, vertical long, and short axis views. The patient underwent pharmacologic (Regadenoson) evaluation with a peak heart rate of 85 beats per minute (58 % percent predicted maximal heart rate) and a peak blood pressure of 178/84 mmHg. The patient was injected with 44.9 millicuries of technetium 99m Cardiolite and subsequently stress SPECT Cardiolite nuclear imaging was obtained in the horizontal long, vertical long, and short axis views. A gated Cardiolite study at peak stress was obtained. Interpretation: Rest and stress SPECT Cardiolite nuclear imaging status post realignment, normalization, and attenuation correction demonstrate a lot of uniform tracer uptake in myocardial perfusion appearing within normal limits. There is end systolic thickening and brightening. The gated Cardiolite study demonstrates myocardial thickening and inward wall motion. The reported LVEF is 85%. Impression: 1. Rest and stress SPECT Cardiolite nuclear imaging demonstrate relative uniform tracer uptake and myocardial perfusion appearing within normal limits. 2. The gated Cardiolite study reports an LVEF of 85 %. This note was generated with [employer] software. It may contain incorrect words, spelling, and punctuation that were not noted in checking the note before signing.
== END ==
PROVIDERS: Family Provider Internal Medicine; PCP Internal Medicine; Referring Provider Physician Assistant Medical; Visit Provider Physician Assistant Medical
DX: I48.91 Unspecified atrial fibrillation (principal); I48.92 Unspecified atrial flutter; I47.1 Supraventricular tachycardia; I10 Essential (primary) hypertension; E78.5 Hyperlipidemia, unspecified; R73.03 Prediabetes; R94.31 Abnormal electrocardiogram [ECG] [EKG]
CPT/HCPCS: 78452; 93017; 93225; 93226; A9500; A4216; J2785

== ENCOUNTER → 2018-11-24 07:48 | Outpatient (CLI) | payer MEDICARE, SELFPAY ==
[2018-10-02 10:11] VITALS: BMI 35.9
[2018-11-24 10:13] LABS: International Normalized Ratio 1.8; Prothrombin Time (Protime)PT. 20.5 SECONDS (11.7-14.9)
== END ==
PROVIDERS: Family Provider Internal Medicine; PCP Internal Medicine; Referring Provider Physician Assistant Medical; Visit Provider Physician Assistant Medical
DX: I48.92 Unspecified atrial flutter (principal)
CPT/HCPCS: 36415; 85610

== ENCOUNTER 2018-12-11 07:15 | Outpatient (RCR) | payer MEDICARE, SELFPAY ==
[2018-10-02 10:11] VITALS: BMI 35.9
[2018-12-11 10:44] LABS: Prothrombin Time (Protime)PT. 22.3 SECONDS (11.7-14.9)
== END 2018-12-18 14:57 | disposition home or self-care (01) ==
LOC: MTLAB 07:15
PROVIDERS: Family Provider Internal Medicine; PCP Internal Medicine; Referring Provider Physician Assistant Medical; Visit Provider Physician Assistant Medical
DX: I48.92 Unspecified atrial flutter (principal)
CPT/HCPCS: 36415; 85610

== ENCOUNTER → 2018-12-12 07:26 | Outpatient (CLI) | payer MEDICARE, SELFPAY ==
[2018-10-02 10:11] VITALS: BMI 35.9
[2018-12-12 10:31] LABS: Anion Gap 10 (5-15); BUN 20 mg/dL (7-18); BUN/Creat Ratio 16.1 RATIO (10-20); Calcium,Total 9.3 mg/dL (8.5-10.1); Chloride 101 mmol/L (98-107); Creatinine, Serum 1.24 mg/dL (0.55-1.02); EST Glomerular Filtration Rate 45 mL/min (>60); Est Glom Filt Rate - Afr Amer 54 mL/min (>60); Glucose 143 mg/dL (74-106); Magnesium 1.4 mg/dL (1.6-2.6); Potassium 4.2 mmol/L (3.5-5.1); Sodium Level 139 mmol/L (136-145)
== END ==
PROVIDERS: Family Provider Internal Medicine; PCP Internal Medicine; Referring Provider Internal Medicine Cardiovascular Disease; Visit Provider Internal Medicine Cardiovascular Disease
DX: E78.5 Hyperlipidemia, unspecified (principal); I12.9 Hypertensive chronic kidney disease with stage 1 through stage 4 chronic kidney disease, or unspecified chronic kidney disease; N18.9 Chronic kidney disease, unspecified; I47.1 Supraventricular tachycardia; I48.91 Unspecified atrial fibrillation; I48.92 Unspecified atrial flutter; R07.9 Chest pain, unspecified; R73.03 Prediabetes; Z79.01 Long term (current) use of anticoagulants
CPT/HCPCS: 36415; 80048; 83735

== ENCOUNTER → 2018-12-22 14:08 | Outpatient (CLI) | payer MEDICARE, SELFPAY ==
[2018-10-02 10:11] VITALS: BMI 35.9
[2018-12-22 15:22] LABS: Magnesium 1.6 mg/dL (1.6-2.6)
== END ==
PROVIDERS: Family Provider Internal Medicine; PCP Internal Medicine; Referring Provider Internal Medicine Cardiovascular Disease; Visit Provider Internal Medicine Cardiovascular Disease
DX: E83.42 Hypomagnesemia (principal)
CPT/HCPCS: 36415; 83735

== ENCOUNTER → 2018-12-22 15:43 | Outpatient (CLI) | payer MEDICARE, SELFPAY ==
[2018-10-02 10:11] VITALS: BMI 35.9
--- NOTE | 2018-12-22 16:05 | MRI_ITS ---
STUDY: MRI LUMBAR SPINE WITHOUT CONTRAST REASON FOR EXAM: Female, 73 years old. Low back pain radiating to right lower extremity TECHNIQUE: Standardized fat and water weighted pulse sequences were obtained in the sagittal and axial planes. COMPARISON: None FINDINGS: T12-L1: Normal endplates. Normal disc height, hydration and morphology. Normal bilateral facet joints. Normal central canal and bilateral lateral recesses. Normal bilateral intervertebral neural foramina. Normal lumbar lordosis. There is no substantial scoliosis. Normal conus medullaris that terminates at L1 L1-2: Normal endplates. Normal disc height, desiccation and normal morphology. Normal bilateral facet joints. Normal central canal and bilateral lateral recesses. Normal bilateral intervertebral neural foramina. L2-3: Normal endplates. Normal disc height, desiccation and tiny left foraminal disc protrusion. Normal bilateral facet joints. Normal central canal and bilateral lateral recesses. Minor left neural foraminal encroachment. L3-4: Narrowed disc space and degenerative endplate changes with desiccation of the disc and moderate bulging of the annulus. Bilateral facet arthropathy and thickening of ligamenta flava. Mild narrowing of the central canal and mild bilateral recess stenosis. Moderate bilateral neuroforaminal stenosis L4-5: Narrowed disc space and degenerative endplate changes with desiccation of disc and moderate bulging of the annulus. Bilateral facet arthropathy and thickening of ligamenta flava. Mild narrowing the central canal and bilateral recess stenosis. Moderate bilateral neuroforaminal stenosis L5-S1: Normal endplates. Normal disc height, desiccation and minor annular bulge. Bilateral facet arthropathy. Normal central canal and bilateral lateral recesses. Minor left neuroforaminal stenosis. Normal visualized sacral ala. Normal visualized paraspinous soft tissue structures. MRI/Spine Lumbar (Routine) IMPRESSION: No evidence for acute fracture or subluxation. Multilevel disc degeneration and spinal stenosis secondary to disc disease and bony hypertrophy most severe at L3-4 and L4-5 Electronically Signed: Bertram Morse MD at 21:45 EST , Service support ,
== END ==
PROVIDERS: Family Provider Internal Medicine; PCP Internal Medicine; Referring Provider Anesthesiology Pain Medicine; Visit Provider Anesthesiology Pain Medicine
DX: M51.37 Other intervertebral disc degeneration, lumbosacral region (principal); M54.17 Radiculopathy, lumbosacral region; E83.42 Hypomagnesemia
CPT/HCPCS: 36415; 72148; 83735

== ENCOUNTER 2019-01-13 08:15 | Outpatient (RCR) | payer MEDICARE, SELFPAY ==
[2018-10-02 10:11] VITALS: BMI 35.9
[2019-01-02 10:25] LABS: International Normalized Ratio 2.5; Prothrombin Time (Protime)PT. 27.1 SECONDS (11.7-14.9)
[2019-01-13 10:21] LABS: International Normalized Ratio 1.2; Prothrombin Time (Protime)PT. 15.4 SECONDS (11.7-14.9)
== END 2019-01-13 09:00 | disposition home or self-care (01) ==
LOC: MTLAB 08:15
PROVIDERS: Family Provider Internal Medicine; PCP Internal Medicine; Referring Provider Physician Assistant Medical; Visit Provider Physician Assistant Medical
DX: I48.92 Unspecified atrial flutter (principal)
CPT/HCPCS: 36415; 85610

== ENCOUNTER 2019-02-16 12:55 | Outpatient (RCR) | payer MEDICARE, SELFPAY ==
[2018-10-02 10:11] VITALS: BMI 35.9
[2019-01-23 10:07] LABS: International Normalized Ratio 1.8; Prothrombin Time (Protime)PT. 20.3 SECONDS (11.7-14.9)
[2019-02-02 14:11] LABS: International Normalized Ratio 1.9; Prothrombin Time (Protime)PT. 21.9 SECONDS (11.7-14.9)
[2019-02-16 14:08] LABS: International Normalized Ratio 2.2; Prothrombin Time (Protime)PT. 24.2 SECONDS (11.7-14.9)
== END 2019-02-17 16:00 | disposition home or self-care (01) ==
LOC: MTLAB 12:55
PROVIDERS: Family Provider Internal Medicine; PCP Internal Medicine; Referring Provider Physician Assistant Medical; Visit Provider Physician Assistant Medical
DX: I48.92 Unspecified atrial flutter (principal)
CPT/HCPCS: 36415; 85610

== ENCOUNTER 2019-03-02 08:58 | Outpatient (RCR) | payer MEDICARE, SELFPAY ==
[2018-10-02 10:11] VITALS: BMI 35.9
[2019-03-02 10:24] LABS: International Normalized Ratio 2.6; Prothrombin Time (Protime)PT. 27.6 SECONDS (11.7-14.9)
[2019-03-30 10:22] LABS: International Normalized Ratio 2.9; Prothrombin Time (Protime)PT. 30.8 SECONDS (11.7-14.9)
== END 2019-03-02 10:00 | disposition home or self-care (01) ==
LOC: MTLAB 08:58
PROVIDERS: Family Provider Internal Medicine; PCP Internal Medicine; Referring Provider Physician Assistant Medical; Visit Provider Physician Assistant Medical
DX: I48.92 Unspecified atrial flutter (principal)
CPT/HCPCS: 36415; 85610

== ENCOUNTER 2019-03-30 07:54 | Outpatient (RCR) | payer MEDICARE, SELFPAY ==
[2018-10-02 10:11] VITALS: BMI 35.9
== END 2019-03-30 08:00 | disposition home or self-care (01) ==
LOC: MTLAB 07:54
PROVIDERS: Family Provider Internal Medicine; PCP Internal Medicine; Referring Provider Physician Assistant Medical; Visit Provider Physician Assistant Medical
DX: I48.92 Unspecified atrial flutter (principal)

== ENCOUNTER 2019-04-27 11:43 | Outpatient (RCR) | payer MEDICARE, SELFPAY ==
[2018-10-02 10:11] VITALS: BMI 35.9
[2019-04-20 11:15] VITALS: BMI 35.9
[2019-04-27 13:50] LABS: International Normalized Ratio 2.8; Prothrombin Time (Protime)PT. 29.4 SECONDS (11.7-14.9)
== END 2019-05-20 07:22 | disposition home or self-care (01) ==
LOC: MTLAB 11:43
PROVIDERS: Family Provider Internal Medicine; PCP Internal Medicine; Referring Provider Physician Assistant Medical; Visit Provider Physician Assistant Medical
DX: I48.92 Unspecified atrial flutter (principal)
CPT/HCPCS: 36415; 85610

== ENCOUNTER 2019-06-08 09:20 | Outpatient (RCR) | payer MEDICARE, SELFPAY ==
[2019-04-20 11:15] VITALS: BMI 35.9
[2019-05-25 10:29] LABS: International Normalized Ratio 3.1; Prothrombin Time (Protime)PT. 32.3 SECONDS (11.7-14.9)
[2019-06-08 12:19] LABS: International Normalized Ratio 3.4; Prothrombin Time (Protime)PT. 34.8 SECONDS (11.7-14.9)
== END 2019-06-08 10:20 | disposition home or self-care (01) ==
LOC: MTLAB 09:20
PROVIDERS: Family Provider Internal Medicine; PCP Internal Medicine; Referring Provider Physician Assistant Medical; Visit Provider Physician Assistant Medical
DX: I48.92 Unspecified atrial flutter (principal)
CPT/HCPCS: 36415; 85610

== ENCOUNTER 2019-07-14 08:32 | Outpatient (RCR) | payer MEDICARE, SELFPAY ==
[2019-04-20 11:15] VITALS: BMI 35.9
[2019-06-23 10:30] LABS: International Normalized Ratio 2.5
[2019-07-14 10:13] LABS: Prothrombin Time (Protime)PT. 22.3 SECONDS (11.7-14.9)
== END 2019-07-14 18:00 | disposition home or self-care (01) ==
LOC: MTLAB 08:32
PROVIDERS: Family Provider Internal Medicine; PCP Internal Medicine; Referring Provider Physician Assistant Medical; Visit Provider Physician Assistant Medical
DX: I48.91 Unspecified atrial fibrillation (principal); I48.92 Unspecified atrial flutter; I47.1 Supraventricular tachycardia; Z79.01 Long term (current) use of anticoagulants
CPT/HCPCS: 36415; 85610

== ENCOUNTER 2019-11-06 09:31 | Outpatient (RCR) | payer MEDICARE, SELFPAY ==
[2019-04-20 11:15] VITALS: BMI 35.9
[2019-10-26 10:23] LABS: International Normalized Ratio 1.6; Prothrombin Time (Protime)PT. 19.3 SECONDS (11.7-14.9)
[2019-11-06 12:50] LABS: International Normalized Ratio 2.1; Prothrombin Time (Protime)PT. 23.9 SECONDS (11.7-14.9)
== END 2019-11-06 18:00 | disposition home or self-care (01) ==
LOC: MTLAB 09:31
PROVIDERS: Internal Medicine Cardiovascular Disease; Family Provider Internal Medicine; PCP Internal Medicine; Referring Provider Physician Assistant Medical; Visit Provider Physician Assistant Medical
DX: I48.91 Unspecified atrial fibrillation (principal); I48.92 Unspecified atrial flutter; I47.1 Supraventricular tachycardia; Z79.01 Long term (current) use of anticoagulants
CPT/HCPCS: 36415; 85610

== ENCOUNTER 2019-12-07 11:55 | Outpatient (RCR) | payer MEDICARE, SELFPAY ==
[2019-11-12 11:43] VITALS: BMI 35.2
[2019-11-24 12:38] LABS: International Normalized Ratio 1.4; Prothrombin Time (Protime)PT. 17.1 SECONDS (11.7-14.9)
[2019-12-07 14:04] LABS: International Normalized Ratio 1.7; Prothrombin Time (Protime)PT. 20.1 SECONDS (11.7-14.9)
== END 2019-12-07 18:00 | disposition home or self-care (01) ==
LOC: MTLAB 11:55
PROVIDERS: Family Provider Internal Medicine; PCP Internal Medicine; Referring Provider Physician Assistant Medical; Visit Provider Physician Assistant Medical
DX: I48.91 Unspecified atrial fibrillation (principal); I48.92 Unspecified atrial flutter; I47.1 Supraventricular tachycardia; Z79.01 Long term (current) use of anticoagulants
CPT/HCPCS: 36415; 85610

== ENCOUNTER 2020-01-05 08:10 | Outpatient (RCR) | payer MEDICARE, SELFPAY ==
[2019-11-12 11:43] VITALS: BMI 35.2
[2019-12-21 10:25] LABS: International Normalized Ratio 2.2; Prothrombin Time (Protime)PT. 24.4 SECONDS (11.7-14.9)
[2020-01-05 10:11] LABS: International Normalized Ratio 2.9; Prothrombin Time (Protime)PT. 30.4 SECONDS (11.7-14.9)
== END 2020-01-05 18:00 | disposition home or self-care (01) ==
LOC: MTLAB 08:10
PROVIDERS: Family Provider Internal Medicine; PCP Internal Medicine; Referring Provider Physician Assistant Medical; Visit Provider Physician Assistant Medical
DX: I48.91 Unspecified atrial fibrillation (principal); I48.92 Unspecified atrial flutter; I47.1 Supraventricular tachycardia; Z79.01 Long term (current) use of anticoagulants
CPT/HCPCS: 36415; 85610

== ENCOUNTER 2020-02-09 09:25 | Outpatient (RCR) | payer MEDICARE, SELFPAY ==
[2019-11-12 11:43] VITALS: BMI 35.2
[2020-01-26 10:07] LABS: International Normalized Ratio 3.4; Prothrombin Time (Protime)PT. 33.7 SECONDS (11.7-14.9)
[2020-02-09 11:58] LABS: International Normalized Ratio 3.3; Prothrombin Time (Protime)PT. 33.6 SECONDS (11.7-14.9)
== END 2020-02-18 18:00 | disposition home or self-care (01) ==
LOC: MTLAB 09:25
PROVIDERS: Family Provider Internal Medicine; PCP Internal Medicine; Referring Provider Physician Assistant Medical; Visit Provider Physician Assistant Medical
DX: I48.91 Unspecified atrial fibrillation (principal); I48.92 Unspecified atrial flutter; I47.1 Supraventricular tachycardia; Z79.01 Long term (current) use of anticoagulants
CPT/HCPCS: 36415; 85610

== ENCOUNTER 2020-03-10 12:37 | Outpatient (RCR) | payer MEDICARE, SELFPAY ==
[2019-11-12 11:43] VITALS: BMI 35.2
[2020-02-23 12:45] LABS: International Normalized Ratio 2.7; Prothrombin Time (Protime)PT. 28.1 SECONDS (11.7-14.9)
[2020-03-10 15:44] LABS: International Normalized Ratio 2.4; Prothrombin Time (Protime)PT. 25.5 SECONDS (11.7-14.9)
== END 2020-03-10 18:00 | disposition home or self-care (01) ==
LOC: MTLAB 12:37
PROVIDERS: Family Provider Internal Medicine; PCP Internal Medicine; Referring Provider Physician Assistant Medical; Visit Provider Physician Assistant Medical
DX: I48.91 Unspecified atrial fibrillation (principal); I48.92 Unspecified atrial flutter; I47.1 Supraventricular tachycardia; Z79.01 Long term (current) use of anticoagulants
CPT/HCPCS: 36415; 85610

== ENCOUNTER 2020-04-05 09:46 | Outpatient (RCR) | payer MEDICARE, SELFPAY ==
[2019-11-12 11:43] VITALS: BMI 35.2
[2020-04-05 12:37] LABS: International Normalized Ratio 2.4; Prothrombin Time (Protime)PT. 25.3 SECONDS (11.7-14.9)
== END 2020-04-05 18:00 | disposition home or self-care (01) ==
LOC: MTLAB 09:46
PROVIDERS: Family Provider Internal Medicine; PCP Internal Medicine; Referring Provider Physician Assistant Medical; Visit Provider Physician Assistant Medical
DX: I48.91 Unspecified atrial fibrillation (principal); I48.92 Unspecified atrial flutter; I47.1 Supraventricular tachycardia; Z79.01 Long term (current) use of anticoagulants
CPT/HCPCS: 36415; 85610

== ENCOUNTER 2020-05-03 10:02 | Outpatient (RCR) | payer MEDICARE, SELFPAY ==
[2019-11-12 11:43] VITALS: BMI 35.2
[2020-05-03 13:13] LABS: International Normalized Ratio 2.1; Prothrombin Time (Protime)PT. 23.5 SECONDS (11.7-14.9)
== END 2020-05-03 18:00 | disposition home or self-care (01) ==
LOC: MTLAB 10:02
PROVIDERS: Family Provider Internal Medicine; PCP Internal Medicine; Referring Provider Physician Assistant Medical; Visit Provider Physician Assistant Medical
DX: I48.91 Unspecified atrial fibrillation (principal); I48.92 Unspecified atrial flutter; I47.1 Supraventricular tachycardia; Z79.01 Long term (current) use of anticoagulants
CPT/HCPCS: 36415; 85610

== ENCOUNTER 2020-05-29 16:47 | Emergency (ER) | payer MEDICARE, SELFPAY ==
[2020-05-19 09:13] VITALS: BMI 36.6
[2020-05-29 16:48] VITALS: BP 152/82; PULSE 95; RESP 22; TEMP 36.6; O2SAT 97; BMI 37.2
--- NOTE | 2020-05-29 17:01 | CT_ITS ---
STUDY: CT BRAIN WITHOUT CONTRAST REASON FOR EXAM: Female, 74 years old. PT STATED DIZZINESS TODAY RADIATION DOSAGE (If Supplied By Facility): CTDIvol = ( 44.99 ) mGy, DLP = ( 745.49 ) mGycm TECHNIQUE: Transaxial CT imaging of the brain was performed without administration of intravenous contrast material. Individualized dose optimization techniques were used for this CT. COMPARISON: None. FINDINGS: Normal soft tissue structures. Normal calvarium. There is mild cerebral atrophy with widening of the extra-axial spaces and ventricular dilatation. There are areas of decreased attenuation within the white matter tracts of the supratentorial brain, consistent with microvascular disease changes. Normal basal ganglia and thalami. Normal brainstem. Normal cerebellum. There is no intracranial hemorrhage. There are no findings of an acute ischemic infarction. Normal visualized paranasal sinuses. CT/Brain/Head without Contrast IMPRESSION: Chronic involutional changes of the brain. Electronically Signed: Chad Eubanks MD at 17:43 EDT , Service support ,
--- NOTE | 2020-05-29 17:01 | EKG12_ITS ---
Test Reason : Blood Pressure : / mmHG Vent. Rate : 089 BPM Atrial Rate : 056 BPM P-R Int : 000 ms QRS Dur : 078 ms QT Int : 384 ms P-R-T Axes : 000 -10 196 degrees QTc Int : 467 ms Atrial fibrillation with premature ventricular or aberrantly conducted complexes Inferior infarct , age undetermined Cannot rule out Anterior infarct , age undetermined ST & T wave abnormality, consider lateral ischemia Abnormal ECG Confirmed by WILD IVERSON, MARILU ([id number]), make up editor CE ROONEY ([id number]) on 05/30/2020 9:46:15 AM Referred By: Confirmed By:MARILU ROME MD
--- NOTE | 2020-05-29 17:04 | ED.DCSUM_ITS ---
- ER Visit Summary Date of Service: 05/29/20 Chief Complaint: [Near syncope/dizziness] History of Present Illness: The patient is a 74 F Z[place]z to the emergency department with sensation of feeling like she is been a pass out for the last week. Patient states that she has been having intermittent episodes that are short-lived but feels like everything kind of goes black and she might pass out. She denies any chest pain or palpitations with this. She denies any shortness of breath. Patient states today she was sitting in the recliner when she got to sensation and try to stand up and had an odd increased amplification in her head of the sound of the air conditioner that lasted a few seconds and then resolved. Patient states that she had a family member that had similar sensation in her head and ended up having a ruptured aneurysm. Patient currently states she feels relatively well. She not had a recent illness. No loss of taste or smell or recent exposure to COVID-19. Patient has history of diabetes, hypertension, high cholesterol, atrial flutter, CKD, PSVT, and low magnesium. [] Physical Examination: [HEENT-PERRLA, EOMI. Cranial nerves II through XII grossly intact. TMs clear. Mucous membranes moist. No adenopathy. Cardiovascular-regular rate and rhythm without murmur or ectopy Lungs-clear to auscultation, chest wall stable without crepitus or subcu emphysema Abdomen-normoactive bowel sounds, soft, nontender, no rebound or rigidity, no peritoneal signs. Extremities-intact ?4, normal range of motion, normal pulses, atraumatic] Test Results: [CBC with it was normal. EKG obtained showed atrial fibrillation with a ventricular rate of [address] changes. Chemistries unremarkable. BUN 27 and creatinine 1.37. Troponin was less than 0.015. Urinalysis obtained showed 500 leukocyte esterase and 25-[address] scan of the brain without contrast showed essentially nothing acute. Orthostatic vital signs were unremarkable.] Emergency Department Course and Treatment: [Patient had an IV line established. Patient was normal saline. Patient was given Keflex 500 mg p.o. Culture was sent.] Treatment Plan: [Patient will be treated with Keflex for suspected UTI. Patient advised to push fluids. Etiology of her symptoms unclear.] Disposition: [Discharged home in stable condition. Patient advised to return if syncope, chest pain, severe headaches, or condition should worsen anyway.] Impression: [Near syncope UTI] This note was generated with [employer] dictation software. It may contain incorrect words, spelling, and punctuation that were not noted in review of the chart prior to signing ED Disposition - Plan for ED Patient: Referrals: Nikita Morfin MD [Primary Care Provider] -
[2020-05-29] MEDS: 0.9% Normal Saline 1,000 ML 150 ML IV (17:11)
[2020-05-29 17:12] VITALS: BP 131/81; BP 145/63; BP 153/97; PULSE 90; PULSE 94
[2020-05-29 17:22] LABS: Absolute Lymphocyte Count 2.24 X10^3/uL (0.83-4.51); Absolute Neutrophil Count 4.4 X10^3/uL (2.0-7.7); Basophil# 0.05 X10^3/uL; Basophil% 0.6 % (0-1); Eosinophil# 0.26 X10^3/uL; Eosinophils% 3.3 % (0-5); Hemoglobin 12.8 g/dL (12.0-15.0); Lymphocyte # 2.24 X10^3/ul (4.0); Lymphocyte % 28.1 % (19-41); Mean Corp Hgb Conc 31.2 g/dL (32-36); Mean Corpuscular Hgb 29.4 pg (27.0-32.0); Mean Corpuscular Volume 94.3 fL (81-99); Mean Platelet Vol. 12.6 fl (6.2-12.0); Monocyte# 0.96 X10^3/uL; Monocyte% 12.1 % (0-10); NRBC Flagged by Analyzer 0 % (0-5); Neutrophil # 4.42 X10^3/uL (2.7-7.7); Neutrophil % 55.5 % (47-70); Platelet Count 194 K/mm3 (150-450); RBC Distribution Width CV 13.3 % (11.6-14.6); Red Blood Count 4.35 M/mm3 (4.2-5.4)
[2020-05-29 17:34] LABS: Anion Gap 6 (5-15); BUN 27 mg/dL (7-18); BUN/Creat Ratio 19.7 RATIO (10-20); Chloride 109 mmol/L (98-107); Creatinine, Serum 1.37 mg/dL (0.55-1.02); EST Glomerular Filtration Rate 40 mL/min (>60); Est Glom Filt Rate - Afr Amer 48 mL/min (>60); Glucose 201 mg/dL (74-106); Potassium 4.3 mmol/L (3.5-5.1); Sodium Level 141 mmol/L (136-145)
[2020-05-29 18:00] LABS: Bacteria 0 SEEN /hpf (None Seen); Mucous, Urine 0 SEEN /hpf (<or=2+); Red Blood Cells-Urine 0 SEEN /hpf (0-5)
[2020-05-29 18:05] LABS: Color, Urine Yellow (Yellow); Glucose, Dipstick Normal (Normal); Ketone-Dipstick Negative (Negative); Leukocyte Esterase-Dipstick 500 /ul (Negative); Nitrite-Dipstick Negative (Negative); Occult Blood-Urine 10 /ul (Negative); Protein-Dipstick 30 mg/dl (Negative); Specific Gravity, Urine 1.025 (1.002-1.030); Urine Bilirubin Dipstick Negative (Negative); Urine Clarity Clear (Clear); Urine Urobilinogen Normal (Normal)
[2020-05-29 18:11] LABS: White Blood Cells 25-50 SEEN /hpf (0-5)
[2020-05-29 18:12] LABS: Squamous Epithelial Cells - UA 0-5 SEEN /hpf (5-10)
[2020-05-29 18:13] VITALS: BP 135/64; PULSE 84; RESP 18; O2SAT 96
--- NOTE | 2020-05-29 18:26 | ED.DEP ---
ED Disposition - Plan for ED Patient: Instructions: ED Near-Fainting Uncertain Cause, ED CYSTITIS Female Adult Prescriptions: Cephalexin [Keflex] 500 mg PO Q6 #28 cap Prescription Printed Referrals: Nikita Morfin MD [Primary Care Provider] - 3-5 Days
[2020-05-29 18:41] VITALS: BP 139/70; PULSE 84; RESP 20; O2SAT 96
[2020-05-29] MEDS: Cephalexin 250 MG Capsule 500 MG PO (18:41)
== END 2020-05-29 18:51 | disposition home or self-care (01) ==
LOC: ED 17:31
PROVIDERS: Emergency Provider Emergency Medicine; PCP Internal Medicine
DX: R55 Syncope and collapse (principal); N39.0 Urinary tract infection, site not specified; I12.9 Hypertensive chronic kidney disease with stage 1 through stage 4 chronic kidney disease, or unspecified chronic kidney disease; E11.22 Type 2 diabetes mellitus with diabetic chronic kidney disease; N18.9 Chronic kidney disease, unspecified; I48.91 Unspecified atrial fibrillation; I48.92 Unspecified atrial flutter; E78.00 Pure hypercholesterolemia, unspecified; Z79.84 Long term (current) use of oral hypoglycemic drugs
CPT/HCPCS: 70450; 80048; 81001; 84484; 85025; 93005; 96360; 96361; 99284; J7030

== ENCOUNTER 2020-06-17 09:00 | Outpatient (RCR) | payer MEDICARE, SELFPAY ==
[2020-05-19 09:13] VITALS: BMI 36.6
[2020-05-31 12:38] LABS: International Normalized Ratio 2.3; Prothrombin Time (Protime)PT. 24.4 SECONDS (11.7-14.9)
[2020-06-17 09:49] LABS: Prothrombin Time (Protime)PT. 22.2 SECONDS (11.7-14.9)
== END 2020-06-20 18:00 | disposition home or self-care (01) ==
LOC: MTLAB 09:00
PROVIDERS: Internal Medicine Cardiovascular Disease; Family Provider Internal Medicine; PCP Internal Medicine; Referring Provider Physician Assistant Medical; Visit Provider Physician Assistant Medical
DX: I48.91 Unspecified atrial fibrillation (principal); I48.92 Unspecified atrial flutter; I47.1 Supraventricular tachycardia; Z79.01 Long term (current) use of anticoagulants
CPT/HCPCS: 36415; 85610

== ENCOUNTER 2020-07-15 10:45 | Outpatient (RCR) | payer MEDICARE, SELFPAY ==
[2020-06-07 09:20] VITALS: BMI 37.2
[2020-06-23 12:37] LABS: International Normalized Ratio 1.3; Prothrombin Time (Protime)PT. 15.3 SECONDS (11.7-14.9)
[2020-06-28 13:09] LABS: International Normalized Ratio 1.6; Prothrombin Time (Protime)PT. 18.5 SECONDS (11.7-14.9)
[2020-06-30 09:58] LABS: International Normalized Ratio 2.1; Prothrombin Time (Protime)PT. 22.8 SECONDS (11.7-14.9)
[2020-07-15 12:27] LABS: Prothrombin Time (Protime)PT. 21.8 SECONDS (11.7-14.9)
== END 2020-07-15 18:00 | disposition home or self-care (01) ==
LOC: MTLAB 10:45
PROVIDERS: Internal Medicine Cardiovascular Disease; Family Provider Internal Medicine; PCP Internal Medicine; Referring Provider Physician Assistant Medical; Visit Provider Physician Assistant Medical
DX: I48.91 Unspecified atrial fibrillation (principal); I48.92 Unspecified atrial flutter; Z79.01 Long term (current) use of anticoagulants
CPT/HCPCS: 36415; 85610

== ENCOUNTER 2020-08-05 10:19 | Outpatient (RCR) | payer MEDICARE, SELFPAY ==
[2020-06-07 09:20] VITALS: BMI 37.2
[2020-07-22 10:26] LABS: International Normalized Ratio 2.3; Prothrombin Time (Protime)PT. 25.1 SECONDS (11.7-14.9)
[2020-07-29 12:46] LABS: International Normalized Ratio 2.4; Prothrombin Time (Protime)PT. 25.4 SECONDS (11.7-14.9)
[2020-08-05 12:30] LABS: Prothrombin Time (Protime)PT. 22.6 SECONDS (11.7-14.9)
== END 2020-08-05 18:00 | disposition home or self-care (01) ==
LOC: MTLAB 10:19
PROVIDERS: Family Provider Internal Medicine; PCP Internal Medicine; Referring Provider Physician Assistant Medical; Visit Provider Physician Assistant Medical
DX: I48.91 Unspecified atrial fibrillation (principal); I48.92 Unspecified atrial flutter; I47.1 Supraventricular tachycardia; Z79.01 Long term (current) use of anticoagulants
CPT/HCPCS: 36415; 85610

== ENCOUNTER 2020-09-19 09:42 | Outpatient (RCR) | payer MEDICARE, SELFPAY ==
[2020-06-07 09:20] VITALS: BMI 37.2
[2020-08-22 12:39] LABS: International Normalized Ratio 2.3; Prothrombin Time (Protime)PT. 25.1 SECONDS (11.7-14.9)
[2020-09-19 12:27] LABS: International Normalized Ratio 2.5; Prothrombin Time (Protime)PT. 26.4 SECONDS (11.7-14.9)
== END 2020-09-19 18:00 | disposition home or self-care (01) ==
LOC: MTLAB 09:42
PROVIDERS: Family Provider Internal Medicine; PCP Internal Medicine; Referring Provider Physician Assistant Medical; Visit Provider Physician Assistant Medical
DX: I48.91 Unspecified atrial fibrillation (principal); I48.92 Unspecified atrial flutter; Z79.01 Long term (current) use of anticoagulants
CPT/HCPCS: 36415; 85610

== ENCOUNTER 2020-10-17 09:41 | Outpatient (RCR) | payer MEDICARE, SELFPAY ==
[2020-06-07 09:20] VITALS: BMI 37.2
[2020-10-17 12:20] LABS: International Normalized Ratio 2.8; Prothrombin Time (Protime)PT. 29.5 SECONDS (11.7-14.9)
== END 2020-10-17 18:00 | disposition home or self-care (01) ==
LOC: MTLAB 09:41
PROVIDERS: Family Provider Internal Medicine; PCP Internal Medicine; Referring Provider Physician Assistant Medical; Visit Provider Physician Assistant Medical
DX: I48.91 Unspecified atrial fibrillation (principal); I48.92 Unspecified atrial flutter; Z79.01 Long term (current) use of anticoagulants
CPT/HCPCS: 36415; 85610

== ENCOUNTER 2020-11-14 08:23 | Outpatient (RCR) | payer MEDICARE, SELFPAY ==
[2020-06-07 09:20] VITALS: BMI 37.2
[2020-11-14 10:03] LABS: International Normalized Ratio 2.6; Prothrombin Time (Protime)PT. 27.5 SECONDS (11.7-14.9)
== END 2020-11-14 18:00 | disposition home or self-care (01) ==
LOC: MTLAB 08:23
PROVIDERS: Family Provider Internal Medicine; PCP Internal Medicine; Referring Provider Physician Assistant Medical; Visit Provider Physician Assistant Medical
DX: I48.91 Unspecified atrial fibrillation (principal); I48.92 Unspecified atrial flutter; Z79.01 Long term (current) use of anticoagulants
CPT/HCPCS: 36415; 85610

== ENCOUNTER 2020-12-07 02:16 | Observation (INO) | payer MEDICARE, SELFPAY ==
[2020-06-07 09:20] VITALS: BMI 37.2
[2020-12-07] VITALS (15 sets, daily range): BP systolic 136–178; BP diastolic 56–98; PULSE 69–79; RESP 16–18; TEMP 36.6–37.2; O2SAT 96–98; BMI 37.5; BMI 37.6
--- NOTE | 2020-12-07 02:39 | ECHOCS_ITS ---
Reason For Study: Syncope Procedure This was a 2D Doppler, Color Flow transthoracic echocardiogram. Contrast injection was performed. Exam performed portable in patient room. Left Ventricle Normal LV size. Left ventricular systolic function is normal. The estimated ejection fraction is 65 %. Stage 3 diastolic dysfunction. No regional wall motion abnormalities noted. Right Ventricle Normal RV size. Normal systolic function. Atria Normal left atrium. Normal right atrium. Mitral Valve Normal mitral valve. Mild (1+) eccentric mitral valve insufficiency. Tricuspid Valve Normal tricuspid valve. Mild to moderate (1-2+) tricuspid valve insufficiency. Pulmonary artery systolic pressure is 50 mmHg. Moderate pulmonary hypertension. Aortic Valve Normal aortic valve. Trisinus/trileaflet aortic valve. Pulmonic Valve Normal pulmonic valve. Great Vessels Normal aortic root. The pulmonary artery is normal size. Normal inferior vena cava. Pericardium/Pleural No pericardial effusion. Medication Diluted definity 2ml given slow IV push to enhance endocardial definition. MMode/2D Measurements & Calculations LVIDd: 5.0 cm IVSd: 1.00 cm Ao root diam: 3.2 cm LVIDs: 2.8 cm LVPWd: 1.1 cm RVDd: 3.4 cm FS: 44.9 % LAV(MOD-bp): 51.7 ml LVAd ap4: 28.8 cm2 SV(MOD-sp4): 53.6 ml LAV(MOD-bp) Indexed: 23.7 ml/m2 EDV(MOD-sp4): 83.5 ml LAV(MOD-sp2): 50.2 ml EDV(sp4-el): 88.0 ml LAV(MOD-sp4): 49.8 ml LVAs ap4: 14.9 cm2 ESV(MOD-sp4): 29.9 ml ESV(sp4-el): 29.4 ml EF(MOD-sp4): 64.2 % EF(sp4-el): 66.6 % SV(sp4-el): 58.6 ml LA A4 area: 18.9 cm2 LA dimension(2D): 4.8 cm RA A4 area: 13.7 cm2 Doppler Measurements & Calculations MV E max maximiliano: 141.5 cm/sec Lat Peak E' Maximiliano: 11.2 cm/sec Med Peak E' Maximiliano: 6.3 cm/sec MV A max maixmiliano: 58.6 cm/sec E/E' lat: 12.6 E/E' med: 22.6 MV E/A: 2.4 Ao V2 max: 171.8 cm/sec LV V1 max: 139.1 cm/sec PA V2 max: 86.8 cm/sec Ao max P.8 mmHg LV V1 max P.7 mmHg Ao V2 mean: 125.6 cm/sec Ao mean P.9 mmHg Ao V2 VTI: 41.4 cm TR max maximiliano: 341.9 cm/sec TR max P.8 mmHg Interpretation Summary Normal LV size. Left ventricular systolic function is normal. The estimated ejection fraction is 65 %. Stage 3 diastolic dysfunction. Mild (1+) eccentric mitral valve insufficiency. Pulmonary artery systolic pressure is 50 mmHg. Moderate pulmonary hypertension. Ordering Physician: Sudheer Burciaga Referring Physician: Nikita Morfin Performed By: Lula Sheffield, RDCS, RVT
--- NOTE | 2020-12-07 02:47 | HP.PCM_ITS ---
Problem List (1) Syncope Status: Acute (2) Pure hypercholesterolemia Status: Chronic (3) jail (current) use of anticoagulants Status: Chronic (4) Paroxysmal atrial flutter Status: Chronic (5) Atrial fibrillation and flutter Status: Chronic (6) CKD (chronic kidney disease) Status: Chronic (7) PSVT (paroxysmal supraventricular tachycardia) Status: Chronic (8) Benign essential HTN Status: Chronic (9) Borderline diabetes mellitus Status: Chronic History of Present Illness Date of Admission: 12/07/20 Chief Complaint: Syncope Patient is 75-year-old female with significant history of diabetes mellitus; hypertension; atrial fibrillation on Coumadin who went to [facility] ED for syncope. Patient lives at home alone. While she was sitting behind a computer she felt lightheaded and was presyncopal. She leaned towards the desk of her keyboard and had some shaking spell. The next thing she remembers she was on the floor. She got up and realized that she has pain in the left foot and the left knee. She called her PCP who instructed her to go to the emergency department. At emergency department imaging showed left knee effusion with small avulsion. X-ray of left foot did not show any acute process. EKG showed sinus rhythm with LVH. Troponin was negative. INR was 3.5. Covid and influenza screen was negative. Her blood sugar was 241. BUN/creatinine was 16 and 1.04 respectively. Urine leukocyte esterase was mildly positive. ED doc send urine culture. However patient did not have any urinary symptoms. CT brain was negative. Patient is unable to ambulate because of pain. Patient reports a history of presyncopal episodes. She think that her pre- syncopal episodes is linked with UTIs. She denies any urinary symptoms of increased frequency; dysuria; or retention. Reason for transfer: Emergent department doctor reported that there are no specialist at [facility]. Past Medical History Past Medical History (Chronic Problems): Chronic Problems (Last Reviewed 12/07/20 @ 03:[address] Sudheer Burciaga MD) Pure hypercholesterolemia (Chronic) jail (current) use of anticoagulants (Chronic) Paroxysmal atrial flutter (Chronic) Atrial fibrillation and flutter (Chronic) CKD (chronic kidney disease) (Chronic) PSVT (paroxysmal supraventricular tachycardia) (Chronic) Benign essential HTN (Chronic) Borderline diabetes mellitus (Chronic) Medical History: Medical History (Last Reviewed 12/07/20 @ 03:[address] Sudheer Burciaga MD) Pure hypercholesterolemia (Chronic) E78.00 jail (current) use of anticoagulants (Chronic) Z79.01 Paroxysmal atrial flutter (Chronic) I48.92 Atrial fibrillation and flutter (Chronic) I48.91, I48.92 CKD (chronic kidney disease) (Chronic) N18.9 PSVT (paroxysmal supraventricular tachycardia) (Chronic) I47.1 Benign essential HTN (Chronic) I10 Borderline diabetes mellitus (Chronic) R73.03 Back pain M54.9 Hip pain M25.559 EMILIANO (obstructive sleep apnea) G47.33 Osteoarthritis M19.90 History of echocardiogram Onset Date: ~12/2012 Z92.89 EF: 57% @ [facility] history right lower extremity surgery Allergies codeine Adverse Reaction (Severe, Verified 05/29/20 16:48) Mental status change erythromycin base Adverse Reaction (Severe, Verified 05/29/20 16:48) Vomiting Home Medications: Ambulatory Orders Medication Instructions Recorded atorvastatin 10 mg tablet 10 mg PO QHS 10/09/17 metformin 500 mg tablet 500 mg PO BID 10/09/17 metoprolol tartrate 100 mg tablet 150 mg PO BID tab 10/09/17 multivitamin 1 tab PO QDAY 10/09/17 [id number]-[id number] 2 tab PO QDAY ea 10/10/17 149-hyalur 500 mg-500 mg-66.7 mg tablet Losartan Potassium 100 mg PO DAILY 06/23/18 psyllium husk (aspartame) 3.4 1.75 g PO BID g 10/02/18 gram/5.8 gram oral powder diltiazem HCl 180 mg capsule,24 180 mg PO BID #180 cap 04/11/20 hr,extended release Cephalexin [Keflex] 500 mg PO Q6 #28 cap 05/29/20 enoxaparin 100 mg/mL subcutaneous 100 mg SC Q12H #10 ml 06/07/20 syringe warfarin 2 mg tablet 2 mg PO ONCE tab 06/28/20 amoxicillin 500 mg-clarithromycin See Rx Instructions PO .COMPLEX 07/13/20 500 mg-lansoprazole 30 mg combo pack bismuth subsalicylate 262 mg tablet 2 tab PO .COMPLEX 07/13/20 warfarin 3 mg tablet 3 mg PO QHS #90 tab 10/03/20 Omeprazole 20mg 2 cap PO 12/07/20 Surgical History: Surgical History (Last Reviewed 12/07/20 @ 03:[address] Sudheer Burciaga MD) H/O arthroscopy of left knee Z98.890 History of dilation and curettage Z98.890 x 2 History of fistula repair History of removal of cyst Z98.890 left hand History of umbilical hernia repair Z98.890, Z87.19 S/P foot surgery, right Z98.890 Status post khadra-rectal abscess repair, follow-up exam Z09 Surgical History: arthroscopy, knee, herniorrhaphy, - - D&C. 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 Sudheer Burciaga MD) Mother Hypertension Cancer CAD (coronary artery disease) Father CAD (coronary artery disease) Brother Cancer Paternal Family History: Family History (Last Reviewed 12/07/20 @ 03:[address] Sudheer Burciaga MD) Mother Hypertension Cancer CAD (coronary artery disease) Father CAD (coronary artery disease) Brother Cancer Review of Systems Constitutional: Denies: Chills, Fever, Weight Change HEENT: Denies: Head Aches, Sinus Congestion, Sinus Drainage Cardiovascular: Denies: Chest Pain, Palpitations Respiratory: Denies: Cough, Shortness of breath at rest, Sputum production Gastrointestinal: Denies: Abdominal Pain, Nausea, Vomiting Genitourinary: Denies: Dysuria Musculoskeletal: Reports: Foot Pain - Left foot pain, Joint Pain - Left knee pain. Denies: Joint Tenderness Skin: Denies: Rash, Wounds Neurological: Denies: Numbness, Tingling, Focal weakness Psychiatric: Denies: Anxiety, Depression, Homicidal Ideations, Suicidal Ideations Hematologic/ Lymphatic: Denies: Easy Bruising, Easy Bleeding VTE Information - Inpt Only VTE Present on Admission: No VTE Mechan Device Prophylaxis: SCD's VTE Pharm Prophylaxis ordered?: No Patient Problems: Active and Suspected Problems (Last Reviewed 12/07/20 @ 03:[address] Sudheer Burciaga MD) Syncope (Acute) - Physical Exam Vitals/I&O's: Vital Signs Temp Pulse Resp BP Pulse Ox 97.9 F 71 18 151/87 H 97 12/07/20 02:03 12/07/20 02:03 12/07/20 02:03 12/07/20 02:03 12/07/20 02:03 Oxygen Delivery Method Room Air Weight: 108.9 kg Body Mass Index (BMI) 37.5 General: Alert, Oriented x3, Cooperative HEENT: Atraumatic, PERRLA, EOMI, Normocephalic Neck: Supple, No JVD, Negative Carotid Bruits Lungs: Clear to auscultation, Normal air movement Cardiovascular: Regular rate, Normal S1, Normal S2, No murmurs Abdomen: Bowel Sounds Present, Soft, Non Tender Extremities: No edema, Capillary Refill Less than 3 Seconds Skin: No rashes, No breakdown Musculoskeletal: Tenderness - Left knee and left foot Neurological: Cranial nerves II-XII grossly intact Psych/Mental Status: Normal Affect, Appropriate Current Medications Acetaminophen (Acetaminophen 325 Mg Tablet) 650 mg PO Q6H PRN PRN PRN Reason: Pain Score 1-10/Temp > 100.7 F Atorvastatin Calcium (Atorvastatin Calcium 10 Mg Tablet) 10 mg PO QHS LAUREN Dextrose (Dextrose 50%-Water 25 Gm/50 Ml Disp.Syrin) 0 gm IV X1 PRN; Protocol PRN Reason: Hypoglycemia Glucagon (Glucagon 1 Mg/Ml Syringe) 1 mg IM .X1 PRN PRN Reason: Hypoglycemia Sodium Chloride () 250 mls @ 15 mls/hr IV .[id number] PRN PRN Reason: Saline Flush Sodium Chloride () 250 mls @ 15 mls/hr IV .[id number] PRN PRN Reason: Additional IVPB Infusion Sodium Chloride () 1,000 mls @ 75 mls/hr IV .[id number] LAUREN Stop: 12/07/20 16:04 Insulin Human Lispro (Insulin Lispro 100 Unit/Ml Insuln.Pen) 0 unit SC ACHS LAUREN; Protocol Losartan Potassium (Losartan Potassium 100 Mg Tablet) 100 mg PO DAILY [facility] Metoprolol Tartrate (Metoprolol Tartrate 100 Mg Tablet) 150 mg PO BID LAUREN Morphine Sulfate (Morphine 2 Mg/Ml Syringe) 2 mg IV Q3H PRN PRN PRN Reason: Pain Score 6-10 Non-Formulary Medication (Diltiazem Hcl [Tiazac]) 180 mg PO BID LAUREN Ondansetron HCl (Ondansetron 4 Mg/2 Ml Vial) 4 mg IV Q8H PRN PRN PRN Reason: NAUSEA/VOMITING Phytonadione (Phytonadione (Vit K1) 5 Mg Tablet) 5 mg PO X1 ONE Stop: 12/07/20 03:01 Senna/Docusate Sodium (Senna/Docusate Sodium 1 Tablet) 2 tablet PO BID PRN PRN PRN Reason: Constipation Sodium Chloride (0.9% Saline Lock 10 Ml Syringe) 10 - 40 ml IV UD PRN PRN Reason: SALINE FLUSH Assessment/Plan All Active Problems (Last Reviewed 12/07/20 @ 03:[address] Sudheer Burciaga MD) Syncope (Acute) Patient is 75-year-old female with significant history of diabetes mellitus; hypertension; atrial fibrillation on Coumadin who went to [facility] ED for syncope and collapse and with supratherapeutic INR and left knee effusion with small avulsion; and swelling of his left foot.. Syncope Received IV fluids at emergency department. Orthostatic vitals per protocol. Patient is orthostatic positive. Orthostasis may be contributing to syncope. Normal saline at 100 mL/h maintenance infusion ordered. EKG at outside hospital did not show any acute process. Last echocardiogram on file at the hospital was 01/10/2013. The echocardiogram was normal. Patient had Holter monitor; and stress test in 2019. Echocardiogram ordered Placed on progressive care unit on telemetry. When pain in left knee and left foot is controlled consider LENNY hose if patient continued to have syncope. Patient to get up slowly from lying or sitting position. Moderate left knee effusion with small avulsion/left foot pain and swelling. INR of 3.5 at outside hospital. Vitamin K 5 mg p.o. ordered. Repeat INR. Hold home Coumadin. Ice to left knee and left foot Discussed with emergency point doctor to discuss case with orthopedic surgeon at [facility]. Inpatient consult to orthopedic surgery. Decline stronger pain medicine than Tylenol. Tylenol as needed ordered. Physical therapy and Occupational Therapy to work with patient. Diabetes mellitus Blood glucose is now within goal Hold home Metformin. Accu-Chek QA CHS with correction scale insulin ordered. Paroxysmal A. fib Cardizem continued Metoprolol continued Placed on telemetry Hyperlipidemia Statin continued GERD Omeprazole continued Hypertension Blood pressure on presentation is slightly above goal Metoprolol and Cardizem continued Cozaar continued Trend blood pressure and adjust blood pressure medication DVT prophylaxis Avoid chemical prophylaxis at this time. SCD ordered. Inpatient E&M: 77649 Init Hosp L2
[2020-12-07] MEDS: 0.9% Normal Saline 1,000 ML 75 ML IV ×2 (02:59→16:36)
[2020-12-07] MEDS: Phytonadione (Vit K1) 5 MG TABLET PO (03:02)
[2020-12-07 05:37] LABS: Absolute Lymphocyte Count 1.93 X10^3/uL (0.83-4.51); Absolute Neutrophil Count 5.2 X10^3/uL (2.0-7.7); Basophil# 0.04 X10^3/uL; Basophil% 0.5 % (0-1); Eosinophil# 0.16 X10^3/uL; Eosinophils% 1.9 % (0-5); Hematocrit 36.8 % (37-47); Hemoglobin 11.6 g/dL (12.0-15.0); Lymphocyte # 1.93 X10^3/ul (4.0); Lymphocyte % 23.5 % (19-41); Mean Corp Hgb Conc 31.5 g/dL (32-36); Mean Corpuscular Hgb 29.4 pg (27.0-32.0); Mean Corpuscular Volume 93.4 fL (81-99); Mean Platelet Vol. 13.1 fl (6.2-12.0); Monocyte# 0.86 X10^3/uL; Monocyte% 10.5 % (0-10); NRBC Flagged by Analyzer 0 % (0-5); Neutrophil # 5.22 X10^3/uL (2.7-7.7); Neutrophil % 63.5 % (47-70); Platelet Count 169 K/mm3 (150-450); RBC Distribution Width CV 13.2 % (11.6-14.6); RBC Distribution Width SD 45.1 fl (35.1-43.9); Red Blood Count 3.94 M/mm3 (4.2-5.4); White Blood Count 8.2 K/mm3 (4.4-11.0)
[2020-12-07 05:54] LABS: Anion Gap 7 (5-15); BUN 14 mg/dL (7-18); BUN/Creat Ratio 13.6 RATIO (10-20); Calcium,Total 8.3 mg/dL (8.5-10.1); Chloride 109 mmol/L (98-107); Creatinine, Serum 1.03 mg/dL (0.55-1.02); EST Glomerular Filtration Rate 55 mL/min (>60); Est Glom Filt Rate - Afr Amer 67 mL/min (>60); Estimated Creatinine Clearance 45.19 ml/min; Glucose 129 mg/dL (74-106); Potassium 3.8 mmol/L (3.5-5.1); Sodium Level 141 mmol/L (136-145)
[2020-12-07 06:50] LABS: Bedside Glucose 133 mg/dL (70-110)
[2020-12-07] MEDS: Losartan Potassium 100 MG Tablet PO (08:06)
[2020-12-07] MEDS: dilTIAZem CD 180 MG Capsule PO ×2 (08:06→20:52)
[2020-12-07] MEDS: Metoprolol Tartrate 100 MG Tablet 150 MG PO ×2 (08:07→20:52)
[2020-12-07 09:23] LABS: Bacteria 0 SEEN /hpf (None Seen); Mucous, Urine 0 SEEN /hpf (<or=2+); Red Blood Cells-Urine 0 SEEN /hpf (0-5); Squamous Epithelial Cells - UA 0 SEEN /hpf (5-10); White Blood Cells 0 SEEN /hpf (0-5)
[2020-12-07 09:38] LABS: Color, Urine Yellow (Yellow); Glucose, Dipstick Normal (Normal); Ketone-Dipstick Negative (Negative); Leukocyte Esterase-Dipstick Negative /ul (Negative); Nitrite-Dipstick Negative (Negative); Occult Blood-Urine Negative /ul (Negative); Protein-Dipstick Negative (Negative); Urine Bilirubin Dipstick Negative (Negative); Urine Clarity Clear (Clear); Urine Urobilinogen Normal (Normal)
[2020-12-07 09:40] LABS: International Normalized Ratio 3.1; Prothrombin Time (Protime)PT. 31.4 SECONDS (11.7-14.9)
[2020-12-07 12:10] LABS: Bedside Glucose 129 mg/dL (70-110)
--- NOTE | 2020-12-07 12:50 | CASEMGMT ---
LOLI MC JUDICIAL REPORTER CM to room to meet with patient for initial transition planning/care coordination assessment. LOLI MC introduced self and role at [facility]. Pt voices understanding and consents to assessment at this time. Pt resting in bed in no distress at this time. Pt is A/O at this time and answers all questions appropriately. Care providers, pharmacy, and demographics verified/updated at this time. PCP: Dr Morfin Specialists:Dr Westfall--cardiology Preferred Pharmacy: [facility] [place], [place] Insurance: [employer] Prescription Benefit: Yes Living Will/HPOA: Pt states she has both LW and Healthcare POA, who is her friend, Felipe Cardenas LNOK: son, Bao Living Arrangements: Lives alone in ground-floor apt w/no steps to enter. Independent prior to syncopal episode and fall yesterday. States since then is very painful and unable to walk. Transportation: Pt was driving prior to knee injury yesterday. DME: States has the following DME: cane, CPAP (through [employer]), glucometer Pt states no need for further DME at this time. HHC/SNF: Hx of going to [facility] in the past and then had HHC after d/c from [facility]. Does not remember name of HHC agency. Pt states she is unable to return home at this time d/t the pain, inability to walk/care for self, unless she would greatly improve by the time she is ready for discharge. She states she would like to go to [facility] @ discharge. PLAN: SNF--pt's 1st preference is [facility]. PT/OT evals pending. Iza BRISENON LOLI MC
--- NOTE | 2020-12-07 15:30 | CASEMGMT ---
Social Work SW received referral from Joel HELLER that pt would like to go to [facility] SNF at time of discharge. SW met with pt who confirmed request. Pt states she has been to [facility] previously and would like to return if SNF is warranted. SW provided at list of SNF providers including quality and resource use data and consistent with the patient's preferred geographic region, medical needs, and insurance network. The patient's preferred provider continues to be [facility]. Phone call to Mely at [facility] and they do have beds available. Referral to be faxed. MISA Kessler
--- NOTE | 2020-12-07 15:47 | CASEMGMT ---
Per Irasema ENNIS CM, pt states she would like to go to [facility] at discharge d/t knee pain at this time. Referral faxed to [facility] at this time and CM to follow for therapy notes and orthopedic c/s. Benitez ENNIS CM
--- NOTE | 2020-12-07 16:20 | PCM.CONS.GEN ---
Reason for Consult Date of Consultation: 12/07/20 Reason for Consultation: Left knee pain, left foot pain. Requested by History of Present Illness: The patient is a 75 year old F female with history of atrial fibrillation presents to the hospital with a syncopal episode. Patient notes that when she fell she woke up with severe left knee and foot pain. Outside x-rays revealed no foot fractures. There was concern for a potential enthesophyte avulsion on the proximal pole of the patella. She was transferred to [facility] for her cardiac care. She complains of 2 out of 10 knee pain right now with immobilization and rest however with weightbearing and motion she has 9 out of 10 knee and foot pain. The foot pain is located over the lateral foot and associated with ecchymosis. The knee pain is associated with a large effusion. Her INR was reported to be supratherapeutic at the outside facility. Patient does have a history of arthroscopic surgery on the left knee and subsequent injections by my partner. Past Medical History Past Medical History (Chronic Problems): Chronic Problems (Last Reviewed 12/07/20 @ 03:[address] 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) Z79.01 Paroxysmal atrial flutter (Chronic) I48.92 Atrial fibrillation and flutter (Chronic) I48.91, I48.92 CKD (chronic kidney disease) (Chronic) N18.9 PSVT (paroxysmal supraventricular tachycardia) (Chronic) I47.1 Benign essential HTN (Chronic) I10 Borderline diabetes mellitus (Chronic) R73.03 Back pain M54.9 Hip pain M25.559 EMILIANO (obstructive sleep apnea) G47.33 Osteoarthritis M19.90 History of echocardiogram Onset Date: ~12/2012 Z92.89 EF: 57% @ [facility] history right lower extremity surgery Allergies codeine Adverse Reaction (Severe, Verified 05/29/20 16:48) Mental status change erythromycin base Adverse Reaction (Severe, Verified 05/29/20 16:48) Vomiting Home Medications: Ambulatory Orders Medication Instructions Recorded atorvastatin 10 mg tablet 10 mg PO QHS 10/09/17 metformin 500 mg tablet 500 mg PO BID 10/09/17 metoprolol tartrate 100 mg tablet 150 mg PO BID tab 10/09/17 multivitamin 1 tab PO QDAY 10/09/17 odqcgzdjxig-cyb-nvudtumbv-hrb 2 tab PO QDAY ea 10/10/17 149-hyalur 500 mg-500 mg-66.7 mg tablet Losartan Potassium 100 mg PO DAILY 06/23/18 psyllium husk (aspartame) 3.4 1.75 g PO BID g 10/02/18 gram/5.8 gram oral powder diltiazem HCl 180 mg capsule,24 180 mg PO BID #180 cap 04/11/20 hr,extended release Cephalexin [Keflex] 500 mg PO Q6 #28 cap 05/29/20 enoxaparin 100 mg/mL subcutaneous 100 mg SC Q12H #10 ml 06/07/20 syringe warfarin 2 mg tablet 2 mg PO ONCE tab 06/28/20 amoxicillin 500 mg-clarithromycin See Rx Instructions PO .COMPLEX 07/13/20 500 mg-lansoprazole 30 mg combo pack bismuth subsalicylate 262 mg tablet 2 tab PO .COMPLEX 07/13/20 warfarin 3 mg tablet 3 mg PO QHS #90 tab 10/03/20 Omeprazole 20mg 2 cap PO 12/07/20 Surgical History: Surgical History (Last Reviewed 12/07/20 @ 03:[address] Sudheer Burciaga MD) H/O arthroscopy of left knee Z98.890 History of dilation and curettage Z98.890 x 2 History of fistula repair History of removal of cyst Z98.890 left hand History of umbilical hernia repair Z98.890, Z87.19 S/P foot surgery, right Z98.890 Status post khadra-rectal abscess repair, follow-up exam Z09 Surgical History: arthroscopy, knee, herniorrhaphy, - - D&C. 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 Sudheer Burciaga MD) Mother Hypertension Cancer CAD (coronary artery disease) Father CAD (coronary artery disease) Brother Cancer History Items: No pertinent history Paternal Family History: Family History (Last Reviewed 12/07/20 @ 03:[address] Sudheer Burciaga MD) Mother Hypertension Cancer CAD (coronary artery disease) Father CAD (coronary artery disease) Brother Cancer History Items: No pertinent history Review of Systems Constitutional: Denies: Chills, Fever, Weight Change HEENT: Denies: Head Aches, Sinus Congestion, Sinus Drainage Cardiovascular: Reports: Light Headedness, Palpitations. Denies: Chest Pain Respiratory: Denies: Cough, Shortness of breath at rest, Sputum production Gastrointestinal: Denies: Abdominal Pain, Nausea, Vomiting Genitourinary: Denies: Dysuria Musculoskeletal: Reports: Joint Pain, Joint Tenderness Skin: Denies: Rash, Wounds Neurological: Denies: Numbness, Tingling, Focal weakness Psychiatric: Denies: Anxiety, Depression, Homicidal Ideations, Suicidal Ideations Hematologic/ Lymphatic: Denies: Easy Bruising, Easy Bleeding Patient Problems: Active and Suspected Problems (Last Reviewed 12/07/20 @ 03:[address] Sudheer Burciaga MD) Syncope (Acute) Objective: 2 views of the left knee show nonweightbearing films with significant subchondral sclerosis medial joint space narrowing and marginal osteophyte formation consistent with osteoarthritis likely severe if these were weightbearing films. 3 views of the left foot show no acute fractures, normal bony alignment. - Physical Exam Vitals/I&O's: Vital Signs Temp Pulse Resp BP Pulse Ox 98.0 F 71 16 159/79 H 97 12/07/20 08:03 12/07/20 14:57 12/07/20 08:03 12/07/20 11:34 12/07/20 08:03 Oxygen Delivery Method Room Air Weight: 240 lb 1.334 oz Body Mass Index (BMI) 37.5 Orthostatic Vital Signs Start: 12/07/20 11:34 Freq: q24h Status: Active Protocol: Activity Type Activity Date Activity User E-Sign Co-Sign Detail Recorded Client Recorded Date Recorded By Document 12/07/20 11:34 RV [id number] 12/07/20 11:42 RV 12/07/20 11:34 Orthostatic Vitals Standing -Blood Pressure (90/60-120/80) 136/98 H -Extremity Use Right Arm -Pulse Rate (60-100) 78 Sitting -Blood Pressure (90/60-120/80) 151/91 H -Extremity Use Right Arm -Pulse Rate (60-100) 74 Lying -Blood Pressure (90/60-120/80) 159/79 H -Extremity Use Right Arm -Pulse Rate (60-100) 76 Intake and Output for Last 24 Hours 12/05/20 12/06/20 12/07/20 23:59 23:59 23:59 Intake Total 100 / 100 Balance 100 / 100 General: Alert, Oriented x3, Cooperative HEENT: Atraumatic Oral: Moist Mucosa Neck: No JVD Lungs: - - Nonlabored breathing Cardiovascular: - - Regular pulse rate Abdomen: Non-Distended Extremities: - - Left lower extremity: Foot shows ecchymosis and significant lateral swelling. Tenderness palpation over the ATFL and along the fifth metatarsal. Sensations intact light touch grossly throughout. Positive dorsiflexion EHL and plantar flexion. Knee has a large effusion. Extensor mechanism intact. Musculoskeletal: - - Left lower extremity: No palpable defect. Global tenderness palpation throughout the knee. Knee range of motion 10 to 30 degrees. Laboratory Results 12/07/20 04:56: WBC 8.2, RBC 3.94 L, Hgb 11.6 L, Hct 36.8 L, MCV 93.4, MCH 29.4, MCHC 31.5 L, RDW Std Deviation 45.1 H, RDW Coeff of Marc 13.2, Plt Count 169, MPV 13.1 H, Immature Gran % (Auto) 0.100, Neut % (Auto) 63.5, Lymph % (Auto) 23.5, [place] % (Auto) 10.5 H, Eos % (Auto) 1.9, Baso % (Auto) 0.5, Absolute Neuts (auto) 5.2, Absolute Lymphs (auto) 1.93, Nucleated RBC % 0 12/07/20 04:56: Sodium 141, Potassium 3.8, Chloride 109 H, Carbon Dioxide 25.0, Anion Gap 7, BUN 14, Creatinine 1.03 H, Estim Creat Clear Calc 45.19, Est GFR (MDRD) Af Amer 67, Est GFR (MDRD) Non-Af 55 L, BUN/Creatinine Ratio 13.6, Glucose 129 H, Calcium 8.3 L 12/07/20 04:56: PT 31.4 H, INR 3.1 12/07/20 06:30: POC Glucose 133 H 12/07/20 09:00: Urine Color Yellow, Urine Clarity Clear, Urine pH 6.0, Ur Specific [place] 1.010, Urine Protein Negative, Urine Glucose (UA) Normal, Urine Ketones Negative, Urine Occult Blood Negative, Urine Nitrite Negative, Urine Bilirubin Negative, Urine Urobilinogen Normal, Ur Leukocyte Esterase Negative, Urine RBC 0 SEEN, Urine WBC 0 SEEN, Ur Squamous Epith Cells 0 SEEN, Urine Bacteria 0 SEEN, Urine Mucus 0 SEEN 12/07/20 12:02: POC Glucose 129 H Current Medications Acetaminophen (Acetaminophen 325 Mg Tablet) 650 mg PO Q6H PRN PRN PRN Reason: Pain Score 1-10/Temp > 100.7 F Atorvastatin Calcium (Atorvastatin Calcium 10 Mg Tablet) 10 mg PO QHS [facility] Dextrose (Dextrose 50%-Water 25 Gm/50 Ml Disp.Syrin) 0 gm IV X1 PRN; Protocol PRN Reason: Hypoglycemia Diltiazem HCl (Diltiazem Cd 180 Mg Capsule) 180 mg PO BID [facility] Last Admin: 12/07/20 08:06 Dose: 180 mg Documented by: Glucagon (Glucagon 1 Mg/Ml Syringe) 1 mg IM .X1 PRN PRN Reason: Hypoglycemia Sodium Chloride () 250 mls @ 15 mls/hr IV .[id number] PRN PRN Reason: Saline Flush Sodium Chloride () 250 mls @ 15 mls/hr IV .[id number] PRN PRN Reason: Additional IVPB Infusion Sodium Chloride () 1,000 mls @ 100 mls/hr IV .Q10H [facility] Stop: 12/07/20 22:44 Last Admin: 12/07/20 02:59 Dose: 75 mls/hr Documented by: Insulin Human Lispro (Insulin Lispro 100 Unit/Ml Insuln.Pen) 0 unit SC ACHS [facility]; Protocol Last Admin: 12/07/20 12:34 Dose: Not Given Documented by: Losartan Potassium (Losartan Potassium 100 Mg Tablet) 100 mg PO DAILY [facility] Last Admin: 12/07/20 08:06 Dose: 100 mg Documented by: Metoprolol Tartrate (Metoprolol Tartrate 100 Mg Tablet) 150 mg PO BID LAUREN Last Admin: 12/07/20 08:07 Dose: 150 mg Documented by: Morphine Sulfate (Morphine 2 Mg/Ml Syringe) 2 mg IV Q3H PRN PRN PRN Reason: Pain Score 6-10 Ondansetron HCl (Ondansetron 4 Mg/2 Ml Vial) 4 mg IV Q8H PRN PRN PRN Reason: NAUSEA/VOMITING Senna/Docusate Sodium (Senna/Docusate Sodium 1 Tablet) 2 tablet PO BID PRN PRN PRN Reason: Constipation Sodium Chloride (0.9% Saline Lock 10 Ml Syringe) 10 - 40 ml IV UD PRN PRN Reason: SALINE FLUSH Assessment/Plan All Active Problems (Last Reviewed 12/07/20 @ 03:[address] Suhdeer Burciaga MD) Syncope (Acute) Left ankle sprain with associated hematoma: Natural history of this disease process was discussed the patient. I explained patient she has no acute fractures. At this point I explained the patient she most likely has a sprain and associated ecchymosis/hematoma. This is exacerbated by her supratherapeutic INR. Recommended rest ice and elevation with compression as tolerated. She can be weightbearing as tolerated. If she does poorly with weightbearing and during physical therapy would recommend a Aircast brace. Left knee hemarthrosis: Natural history of the disease process and treatment options were discussed the patient. Likely result of her fall and supratherapeutic INR. Again I recommended rest ice elevation and compression as tolerated. She should participate in physical and occupational therapy. I discussed the ramifications of an extended period of time of not working on range of motion could lead to a chronically stiff and painful knee. I did offer the patient an aspiration to see if the removal of fluid would help with relief of the pain. She did agree to this. After the aspiration patient did have slightly increased range of motion with decreased amount of pain. Procedure: Patient's left knee suprapatellar lateral portal was palpated. This was marked out and then cleaned with alcohol. 18-gauge needle was put into the knee. 30 cc of blood was aspirated from the knee. Beyond 30 cc it was difficult and patient was uncomfortable. We agreed to stop after 30 cc of blood. Position: Patient will follow up in the office in 2 weeks. She should be discharged with continued physical and occupational therapy. KAREN [facility] Office:
[2020-12-07] MEDS: Insulin Lispro 100 UNIT/ML INSULN.PEN SC ×2 (16:35→20:51)
[2020-12-07 16:36] LABS: Bedside Glucose 153 mg/dL (70-110)
[2020-12-07] MEDS: Acetaminophen 325 MG Tablet 650 MG PO (20:04)
[2020-12-07] MEDS: Atorvastatin Calcium 10 MG Tablet PO (20:52)
[2020-12-07 23:21] LABS: Bedside Glucose 206 mg/dL (70-110)
[2020-12-08] VITALS (8 sets, daily range): BP systolic 111–175; BP diastolic 54–101; PULSE 68–80; RESP 16–18; TEMP 36.4–36.8; O2SAT 97–99
[2020-12-08 06:22] LABS: Absolute Lymphocyte Count 1.94 X10^3/uL (0.83-4.51); Absolute Neutrophil Count 5.1 X10^3/uL (2.0-7.7); Basophil# 0.05 X10^3/uL; Basophil% 0.6 % (0-1); Eosinophil# 0.19 X10^3/uL; Eosinophils% 2.3 % (0-5); Hematocrit 38.1 % (37-47); Hemoglobin 11.9 g/dL (12.0-15.0); Lymphocyte # 1.94 X10^3/ul (4.0); Lymphocyte % 23.7 % (19-41); Mean Corp Hgb Conc 31.2 g/dL (32-36); Mean Corpuscular Hgb 29.5 pg (27.0-32.0); Mean Corpuscular Volume 94.3 fL (81-99); Mean Platelet Vol. 12.3 fl (6.2-12.0); Monocyte# 0.89 X10^3/uL; Monocyte% 10.9 % (0-10); NRBC Flagged by Analyzer 0 % (0-5); Neutrophil # 5.08 X10^3/uL (2.7-7.7); POSITIVE MORPHOLOGY YES; Platelet Count 175 K/mm3 (150-450); RBC Distribution Width CV 13.1 % (11.6-14.6); RBC Distribution Width SD 45.1 fl (35.1-43.9); Red Blood Count 4.04 M/mm3 (4.2-5.4); White Blood Count 8.2 K/mm3 (4.4-11.0)
[2020-12-08 06:23] LABS: Differential Indicated SCAN CRITERIA MET
[2020-12-08 06:32] LABS: International Normalized Ratio 1.7; Prothrombin Time (Protime)PT. 19.8 SECONDS (11.7-14.9)
[2020-12-08 06:36] LABS: Bedside Glucose 142 mg/dL (70-110)
[2020-12-08 06:42] LABS: Differential Comment SCANNED
[2020-12-08 06:47] LABS: ALB/GLOB Ratio 0.8 RATIO (0.9-2.4); AST(SGOT) 20 U/L (15-37); Alanine Aminotransfer ALT/SGPT 29 U/L (13-56); Alkaline Phosphatase 77 U/L (45-117); Anion Gap 6 (5-15); BUN 14 mg/dL (7-18); BUN/Creat Ratio 12.6 RATIO (10-20); Calcium,Total 8.5 mg/dL (8.5-10.1); Chloride 109 mmol/L (98-107); Creatinine, Serum 1.11 mg/dL (0.55-1.02); EST Glomerular Filtration Rate 51 mL/min (>60); Est Glom Filt Rate - Afr Amer 61 mL/min (>60); Estimated Creatinine Clearance 41.93 ml/min; Globulin 3.9 g/dL (2.2-4.2); Glucose 159 mg/dL (74-106); Potassium 4.2 mmol/L (3.5-5.1); Protein, Total 6.9 g/dL (6.4-8.2); Sodium Level 141 mmol/L (136-145)
--- NOTE | 2020-12-08 09:05 | CASEMGMT ---
DAVID faxed Orthopedic note and PT/OT evaluations to [facility]. Awaiting their response as to whether or not they will accept patient. Leann WHITE VISUAL MERCHANDISING ASSOCIATE
[2020-12-08] MEDS: Acetaminophen 325 MG Tablet 650 MG PO (09:23)
--- NOTE | 2020-12-08 09:24 | CASEMGMT ---
Per DAVID, [facility] has accepted patient and they will start the pre-cert. DAVID faxed PT/OT and a new face sheet. Plan: [facility] pending pre-cert and when patient is medically ready. Leann WHITE MSW
[2020-12-08] MEDS: dilTIAZem CD 180 MG Capsule PO (09:43)
[2020-12-08] MEDS: Metoprolol Tartrate 100 MG Tablet 150 MG PO (09:43)
[2020-12-08] MEDS: Losartan Potassium 100 MG Tablet PO (09:43)
[2020-12-08] MEDS: Insulin Lispro 100 UNIT/ML INSULN.PEN SC ×2 (12:09→16:51)
[2020-12-08 12:36] LABS: Bedside Glucose 212 mg/dL (70-110)
--- NOTE | 2020-12-08 12:36 | CASEMGMT ---
This patient did not meet criteria for inpatient status and referred to the Utilization Management Committee for review. After review, observation status was determined to be appropriate and Dr. Garcia, attending physician agreed with this decision. Pt?s status was changed to observation. PITT form was reviewed and signed by pt at this time. Pt was also provided with a MCR IP vs OBS booklet at this time. Original PITT to chart and copy to pt at this time. Benitez ENNIS CM
--- NOTE | 2020-12-08 13:07 | CASEMGMT ---
DAVID did talk with Mely at [facility] and let her know patient is ready today if they get the pre-cert. DAVID also notified physician that we need a rapid COVID test. Await pre-cert for [facility]. Leann WHITE MSW
--- NOTE | 2020-12-08 15:05 | CASEMGMT ---
SW received a call from Mely at [facility] and they did get pre-cert for patient. SW notified physician and the plan is to send patient today. SW spoke with patient and let her know this information. Cardiology is to see patient before she leaves today. CHRISTOPHER Michele MSW
--- NOTE | 2020-12-08 15:19 | CON.PCM_ITS ---
Reason for Consult Date of Consultation: 12/08/20 History of Present Illness: The patient is a 75 year old F [] Past Medical History Allergies/Adverse Reactions: Allergies codeine Adverse Reaction (Severe, Verified 05/29/20 16:48) Mental status change erythromycin base Adverse Reaction (Severe, Verified 05/29/20 16:48) Vomiting Home Medications: Ambulatory Orders Medication Instructions Recorded atorvastatin 10 mg tablet 10 mg PO QHS 10/09/17 metformin 500 mg tablet 500 mg PO BID 10/09/17 metoprolol tartrate 100 mg tablet 150 mg PO BID tab 10/09/17 multivitamin 1 tab PO QDAY 10/09/17 aceoucminvp-soc-ekoanmfud-hrb 2 tab PO QDAY ea 10/10/17 149-hyalur 500 mg-500 mg-66.7 mg tablet Losartan Potassium 100 mg PO DAILY 06/23/18 psyllium husk (aspartame) 3.4 1.75 g PO BID g 10/02/18 gram/5.8 gram oral powder diltiazem HCl 180 mg capsule,24 180 mg PO BID #180 cap 04/11/20 hr,extended release warfarin 2 mg tablet 1.5 mg PO QHS tab 06/28/20 Omeprazole 20mg 40 mg PO DAILY 12/07/20 Warfarin Sodium 3 mg PO QHS 12/08/20 Past Medical History (Chronic Problems): Chronic Problems (Last Reviewed 12/07/20 @ 03:[address] 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 Sudheer Burciaga MD) Mother Hypertension Cancer CAD (coronary artery disease) Father CAD (coronary artery disease) Brother Cancer History Items: No pertinent history Paternal Family History: Family History (Last Reviewed 12/07/20 @ 03:[address] Sudheer Burciaga MD) Mother Hypertension Cancer CAD (coronary artery disease) Father CAD (coronary artery disease) Brother Cancer History Items: No pertinent history Smoking Status: Never smoker Objective: Vital Signs Temp Pulse Resp BP Pulse Ox 97.5 F L 72 16 132/65 H 97 12/08/20 09:31 12/08/20 09:43 12/08/20 09:31 12/08/20 09:31 12/08/20 09:31 Oxygen Delivery Method Room Air Weight: 240 lb 1.334 oz Body Mass Index (BMI) 37.5 Orthostatic Vital Signs Start: 12/07/20 11:34 Freq: q24h Status: Active Protocol: Activity Type Activity Date Activity User E-Sign Co-Sign Detail Recorded Client Recorded Date Recorded By Document 12/08/20 09:30 ZENAIDA [id number] 12/08/20 09:41 ZENAIDA 12/08/20 09:30 Orthostatic Vitals Standing -Blood Pressure (90/60-120/80) 175/54 H -Extremity Use Right Arm -Pulse Rate (60-100) 72 Sitting -Blood Pressure (90/60-120/80) 111/101 H -Extremity Use Right Arm -Pulse Rate (60-100) 80 Lying -Blood Pressure (90/60-120/80) 132/65 H -Extremity Use Right Arm -Pulse Rate (60-100) 72 Intake and Output for Last 24 Hours 12/06/20 12/07/20 12/08/20 23:59 23:59 23:59 Intake Total 1100 / 1100 1240 / 1240 Output Total 200 / 400 800 / 800 Balance 900 / 700 440 / 440 12/08/20 06:10: WBC 8.2, RBC 4.04 L, Hgb 11.9 L, Hct 38.1, MCV 94.3, MCH 29.5, MCHC 31.2 L, Plt Count 175, MPV 12.3 H, Immature Gran % (Auto) 0.500, Neut % (Auto) 62.0, Lymph % (Auto) 23.7, [place] % (Auto) 10.9 H, Eos % (Auto) 2.3, Baso % (Auto) 0.6, Absolute Neuts (auto) 5.1, Nucleated RBC % 0 12/08/20 06:10: PT 19.8 H, INR 1.7 12/08/20 06:10: Sodium 141, Potassium 4.2, Chloride 109 H, Carbon Dioxide 26.0, Anion Gap 6, BUN 14, Creatinine 1.11 H, Est GFR (MDRD) Af Amer 61, Est GFR (MDRD) Non-Af 51 L, BUN/Creatinine Ratio 12.6, Glucose 159 H, Calcium 8.5, Total Bilirubin 0.70 Rhythm: EKG: ECHO: Stress Test: Cardiac Cath: PCI: CT Surgery: Holter monitor: EPS: PPM: CXR: Chest CT Scan:
--- NOTE | 2020-12-08 15:30 | PCM.CONS.C ---
Reason for Consult Date of Consultation: 12/08/20 Reason for Consultation: With known paroxysmal atrial fibrillation, hypertension hyperlipidemia. Presented with syncopal episode cardiac consultation requested for evaluation of syncope and also recommendation and treatment for the paroxysmal atrial fibrillation History of Present Illness: The patient is a 75 year old F [] Past Medical History Allergies/Adverse Reactions: Allergies codeine Adverse Reaction (Severe, Verified 05/29/20 16:48) Mental status change erythromycin base Adverse Reaction (Severe, Verified 05/29/20 16:48) Vomiting Home Medications: Ambulatory Orders Medication Instructions Recorded atorvastatin 10 mg tablet 10 mg PO QHS 10/09/17 metformin 500 mg tablet 500 mg PO BID 10/09/17 metoprolol tartrate 100 mg tablet 150 mg PO BID tab 10/09/17 multivitamin 1 tab PO QDAY 10/09/17 ingvcvziasx-ofj-pljroyynz-hrb 2 tab PO QDAY ea 10/10/17 149-hyalur 500 mg-500 mg-66.7 mg tablet Losartan Potassium 100 mg PO DAILY 06/23/18 psyllium husk (aspartame) 3.4 1.75 g PO BID g 10/02/18 gram/5.8 gram oral powder diltiazem HCl 180 mg capsule,24 180 mg PO BID #180 cap 04/11/20 hr,extended release warfarin 2 mg tablet 1.5 mg PO QHS tab 06/28/20 Omeprazole 20mg 40 mg PO DAILY 12/07/20 Acetaminophen [Tylenol Tablet] 650 mg PO Q6H PRN PRN tab 12/08/20 Warfarin Sodium 3 mg PO QHS 12/08/20 Past Medical History (Chronic Problems): Chronic Problems (Last Reviewed 12/07/20 @ 03:[address] 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 Sudheer Burciaga MD) Mother Hypertension Cancer CAD (coronary artery disease) Father CAD (coronary artery disease) Brother Cancer History Items: No pertinent history Paternal Family History: Family History (Last Reviewed 12/07/20 @ 03:[address] Sudheer Burciaga MD) Mother Hypertension Cancer CAD (coronary artery disease) Father CAD (coronary artery disease) Brother Cancer History Items: No pertinent history Smoking Status: Never smoker Objective: Vital Signs Temp Pulse Resp BP Pulse Ox 98.2 F 70 16 130/62 H 97 12/08/20 15:26 12/08/20 15:26 12/08/20 15:26 12/08/20 15:26 12/08/20 15:26 Oxygen Delivery Method Room Air Weight: 240 lb 1.334 oz Body Mass Index (BMI) 37.5 Orthostatic Vital Signs Start: 12/07/20 11:34 Freq: q24h Status: Active Protocol: Activity Type Activity Date Activity User E-Sign Co-Sign Detail Recorded Client Recorded Date Recorded By Document 12/08/20 09:30 ZENAIDA [id number] 12/08/20 09:41 [email or web address] 12/08/20 09:30 Orthostatic Vitals Standing -Blood Pressure (90/60-120/80) 175/54 H -Extremity Use Right Arm -Pulse Rate (60-100) 72 Sitting -Blood Pressure (90/60-120/80) 111/101 H -Extremity Use Right Arm -Pulse Rate (60-100) 80 Lying -Blood Pressure (90/60-120/80) 132/65 H -Extremity Use Right Arm -Pulse Rate (60-100) 72 Intake and Output for Last 24 Hours 12/06/20 12/07/20 12/08/20 23:59 23:59 23:59 Intake Total 1100 / 1100 1240 / 1240 Output Total 200 / 400 800 / 800 Balance 900 / 700 440 / 440 General: Awake, Alert, Oriented x 3 HEENT: Atraumatic, PERRL, EOMI, Sclera Non Icteric Neck: Supple, Good ROM, No Lymph Node Enlargement Cardiovascular: Normal S1, Normal S2, No Murmurs, No Rubs, No Gallops Neurological: Decreased Motor Strength 12/08/20 06:10: WBC 8.2, RBC 4.04 L, Hgb 11.9 L, Hct 38.1, MCV 94.3, MCH 29.5, MCHC 31.2 L, Plt Count 175, MPV 12.3 H, Immature Gran % (Auto) 0.500, Neut % (Auto) 62.0, Lymph % (Auto) 23.7, [place] % (Auto) 10.9 H, Eos % (Auto) 2.3, Baso % (Auto) 0.6, Absolute Neuts (auto) 5.1, Nucleated RBC % 0 12/08/20 06:10: PT 19.8 H, INR 1.7 12/08/20 06:10: Sodium 141, Potassium 4.2, Chloride 109 H, Carbon Dioxide 26.0, Anion Gap 6, BUN 14, Creatinine 1.11 H, Est GFR (MDRD) Af Amer 61, Est GFR (MDRD) Non-Af 51 L, BUN/Creatinine Ratio 12.6, Glucose 159 H, Calcium 8.5, Total Bilirubin 0.70 Rhythm: Frederic revealed normal sinus rhythm EKG: Electrocardiogram showed normal sinus rhythm with some ST T changes in the inferior lead ECHO: Normal LV size, LV systolic function within normal ejection fraction 65% Stage III diastolic dysfunction Mild eccentric mitral valve insufficiency She had moderate pulmonary hypertension with pulmonary artery systolic pressure of 50 mmHg. Assessment/Plan 75-year-old patient, cardiac consult patient requested for evaluation of syncope. 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 Westfall and she was on anticoagulation with warfarin. Evidently she was at home while working on her computer she fell down and sustained trauma to the right knee Patient usually use a cane on walking outside door however she is very active and independent She denied any symptoms of chest pain no symptoms shortness of breath At this admission she been monitored on telemetry no evidence of orthostatic hypotension and she had an echocardiogram which showed LV function is preserved. There is moderate pulmonary hypertension with mild eccentric mitral regurgitation and overall ejection fraction of 65% And also while monitored here in progressive care unit she remains in normal sinus rhythm. Cardiovascular recommendation and plan; 1. I would recommend to continue on the current anticoagulation if no further contraindication and target INR is in the range of two-point 5?3 2. Recommend to Holter monitor as outpatient 3. To follow-up with her primary ornamental ironworker 4. From cardiac standpoint patient can be discharged to the rehabilitation center, as she lives by herself.
--- NOTE | 2020-12-08 15:33 | PCM.TXEXTCAR ---
- Diet Cardiac/calorie controlled diet - Routine Orders/Code Status Routine Lab Work: CBC - within 3 days, BMP - within 3 days, INR - daily Code Status: Full Code - Wound(s) LT LAT KNEE Wound Type: Puncture - Therapies Weight Bearing: Non weight bearing Physical Therapy: Eval and Treat Occupational Therapy: Eval and Treat - Allergies/Procedures Done in Hospital Allergies/Adverse Reactions: Allergies codeine Adverse Reaction (Severe, Verified 05/29/20 16:48) Mental status change erythromycin base Adverse Reaction (Severe, Verified 05/29/20 16:48) Vomiting Procedures: None - Type of Care/Length of Stay Estimated LOS: Convalescent Care Less Than 30 days Type of Care Needed: Skilled Rehab Potential: Good Prognosis: Good - Additional Orders/Day of Discharge Additional Orders: Patient should bear weight as tolerated. She might need an Aircast brace with ambulation for left ankle sprain. Day of Discharge: 12/08/20 - Follow Up Care Primary Care Physician: Nikita Morfin MD [Primary Care Provider] - Please follow up with your Primary Care Physician in: within 1-2 days Please Follow Up With: Mulugeta Pagan MD When: in 2 weeks in the office
--- NOTE | 2020-12-08 16:07 | PHA.DC.MR ---
Pharmacy Service has performed discharge medication reconciliation for this patient upon transfer [facility]. Home Medications atorvastatin 10 mg tablet 10 mg PO QHS 10/09/17 metformin 500 mg tablet 500 mg PO BID 10/09/17 metoprolol tartrate 100 mg tablet 150 mg PO BID tab 10/09/17 multivitamin 1 tab PO QDAY 10/09/17 [id number]-dgp-wkmgciudh-hrb 149-hyalur 500 mg-500 mg-66.7 mg tablet 2 tab PO QDAY ea 10/10/17 Losartan Potassium 100 mg PO DAILY 06/23/18 psyllium husk (aspartame) 3.4 gram/5.8 gram oral powder 1.75 g PO BID g 10/02/18 diltiazem HCl 180 mg capsule,24 hr,extended release 180 mg PO BID #180 cap 04/11/20 warfarin 2 mg tablet 1.5 mg PO QHS tab 06/28/20 Omeprazole 20mg 40 mg PO DAILY 12/07/20 Acetaminophen [Tylenol Tablet] 650 mg PO Q6H PRN PRN tab 12/08/20 Warfarin Sodium 3 mg PO QHS 12/08/20 The patient's discharge medication list was reviewed for discrepancies and discrepancies were resolved.
--- NOTE | 2020-12-08 16:23 | CASEMGMT ---
Cardiology saw patient so she can go to [facility]. SW faxed the negative COVID test to [facility]. SW put a green sheet on patient's chart for instructions on discharge to [facility]. SW also notified patient that she was approved and will go to [facility] today. Plan: d/c to [facility] under skilled level of care. Leann WHITE MSW
--- NOTE | 2020-12-08 16:45 | PCM.DC.SUM ---
Discharge Date and Diagnosis - Problem List Patient Problems: Active and Suspected Problems (Last Reviewed 12/07/20 @ 03:[address] Sudheer Burciaga MD) Syncope (Acute) Date of Admission: 12/07/20 Date of Discharge: 12/08/20 - Primary Discharge Diagnosis Acute Problems: Active Problems (Last Reviewed 12/07/20 @ 03:[address] Sudheer Burciaga MD) Syncope (Acute) Moderate left knee effusion with small avulsion Supratherapeutic INR - Secondary Discharge Diagnosis Chronic Problems: Chronic Problems (Last Reviewed 12/07/20 @ 03:[address] Sudheer Burciaga MD) Pure hypercholesterolemia (Chronic) FDC (current) use of anticoagulants (Chronic) Paroxysmal atrial flutter (Chronic) Atrial fibrillation and flutter (Chronic) CKD (chronic kidney disease) (Chronic) PSVT (paroxysmal supraventricular tachycardia) (Chronic) Benign essential HTN (Chronic) Borderline diabetes mellitus (Chronic) Hospital Course and Treatment Orthopedic surgery Operations: None Procedures: - - bedside knee aspiration on 12/07/20 Summary of Care Provided: The patient is a 75 year old F with PMHx of Type 2 DM, Hypertension, chronic atrial fibrillation, CKD who comes in after a syncopal episode. Patient gives a history of sitting at home alone. She was sitting behind a computer when she felt lightheaded and had a syncopal episode and woke up on the floor. When she got up, she realized that she has pain in the left knee and foot. Patient was seen at an outside ED. Her orthostatic vitals was positive. X-ray of knee showed left knee effusion with small avulsion. X-ray of left foot showed no acute fractures. EKG showed NSR. Troponin was negative. INR was 3.5. CT brain was unremarkable. Patient was given vitamin 5mg. Her repeat INR, the next day, was 1.7. She was seen by orthopedic surgery and found to have a large effusion. She had bedside left knee joint aspiration. 30 cc of blood was aspirated from the knee. Patient was recommended to continue to apply ice, compression as tolerated and to possibly attend physical occupational therapy. She was also asked to ice and elevate her left ankle and weight-bear as she can tolerate possibly with an Aircast brace. Patient was seen by PT and OT and skilled for discharge to an subacute rehab facility. Patient Problems: Active and Suspected Problems (Last Reviewed 12/07/20 @ 03:[address] Sudheer Burciaga MD) Syncope (Acute) Subjective: The day of discharge, patient stated that his left knee was improved but had complained of pain in the left foot. Orthopedics had evaluated and recommended patient to ambulate with an ankle cast. Objective: Physical exam: General: Alert, Oriented x3, Cooperative, obese HEENT: Atraumatic, PERRLA, EOMI, Normocephalic Neck: Supple, No JVD, Negative Carotid Bruits Lungs: Clear to auscultation, Normal air movement Cardiovascular: Regular rate, Normal S1, Normal S2, No murmurs Abdomen: Bowel Sounds Present, Soft, Non Tender Extremities: No edema, left knee swelling was improved, tenderness was present over the sole of left foot, dark discoloration noted Skin: No rashes, No breakdown Musculoskeletal: Tenderness - Left knee and left foot Neurological: Cranial nerves II-XII grossly intact Psych/Mental Status: Normal Affect, Appropriate - Physical Exam Vitals/I&O's: Vital Signs Temp Pulse Resp BP Pulse Ox 98.2 F 70 16 130/62 H 97 12/08/20 15:26 12/08/20 15:26 12/08/20 15:26 12/08/20 15:26 12/08/20 15:26 Oxygen Delivery Method Room Air Weight: 108.9 kg Body Mass Index (BMI) 37.5 Orthostatic Vital Signs Start: 12/07/20 11:34 Freq: q24h Status: Active Protocol: Activity Type Activity Date Activity User E-Sign Co-Sign Detail Recorded Client Recorded Date Recorded By Document 12/08/20 09:30 ZENAIDA [id number] 12/08/20 09:41 ZENAIDA 12/08/20 09:30 Orthostatic Vitals Standing -Blood Pressure (90/60-120/80) 175/54 H -Extremity Use Right Arm -Pulse Rate (60-100) 72 Sitting -Blood Pressure (90/60-120/80) 111/101 H -Extremity Use Right Arm -Pulse Rate (60-100) 80 Lying -Blood Pressure (90/60-120/80) 132/65 H -Extremity Use Right Arm -Pulse Rate (60-100) 72 Intake and Output for Last 24 Hours 0212/07/20 12/08/20 23:59 23:59 23:59 Intake Total 1100 / 1100 1240 / 1240 Output Total 200 / 400 800 / 800 Balance 900 / 700 440 / 440 Microbiology Past 72 Hours 12/08/20 14:20 Interface Orders SARS-CoV-2 Antigen (Rapid) - Final Laboratory Results 12/07/20 20:49: POC Glucose 206 H 12/08/20 06:10: WBC 8.2, RBC 4.04 L, Hgb 11.9 L, Hct 38.1, MCV 94.3, MCH 29.5, MCHC 31.2 L, RDW Std Deviation 45.1 H, RDW Coeff of Marc 13.1, Plt Count 175, MPV 12.3 H, Immature Gran % (Auto) 0.500, Neut % (Auto) 62.0, Lymph % (Auto) 23.7, [place] % (Auto) 10.9 H, Eos % (Auto) 2.3, Baso % (Auto) 0.6, Absolute Neuts (auto) 5.1, Absolute Lymphs (auto) 1.94, Nucleated RBC % 0, Differential Comment SCANNED 12/08/20 06:10: PT 19.8 H, INR 1.7 12/08/20 06:10: Sodium 141, Potassium 4.2, Chloride 109 H, Carbon Dioxide 26.0, Anion Gap 6, BUN 14, Creatinine 1.11 H, Estim Creat Clear Calc 41.93, Est GFR (MDRD) Af Amer 61, Est GFR (MDRD) Non-Af 51 L, BUN/Creatinine Ratio 12.6, Glucose 159 H, Calcium 8.5, Total Bilirubin 0.70, AST 20, ALT 29, Alkaline Phosphatase 77, Total Protein 6.9, Albumin 3.0 L, Globulin 3.9, Albumin/Globulin Ratio 0.8 L 12/08/20 06:32: POC Glucose 142 H 12/08/20 12:07: POC Glucose 212 H Current Medications Acetaminophen (Acetaminophen 325 Mg Tablet) 650 mg PO Q6H PRN PRN PRN Reason: Pain Score 1-10/Temp > 100.7 F Last Admin: 12/08/20 09:23 Dose: 650 mg Documented by: Atorvastatin Calcium (Atorvastatin Calcium 10 Mg Tablet) 10 mg PO QHS [facility] Last Admin: 12/07/20 20:52 Dose: 10 mg Documented by: Dextrose (Dextrose 50%-Water 25 Gm/50 Ml Disp.Syrin) 0 gm IV X1 PRN; Protocol PRN Reason: Hypoglycemia Diltiazem HCl (Diltiazem Cd 180 Mg Capsule) 180 mg PO BID [facility] Last Admin: 12/08/20 09:43 Dose: 180 mg Documented by: Glucagon (Glucagon 1 Mg/Ml Syringe) 1 mg IM .X1 PRN PRN Reason: Hypoglycemia Sodium Chloride () 250 mls @ 15 mls/hr IV .[id number] PRN PRN Reason: Saline Flush Sodium Chloride () 250 mls @ 15 mls/hr IV .[id number] PRN PRN Reason: Additional IVPB Infusion Insulin Human Lispro (Insulin Lispro 100 Unit/Ml Insuln.Pen) 0 unit SC ACHS [facility]; Protocol Last Admin: 12/08/20 12:09 Dose: 4 u Documented by: Losartan Potassium (Losartan Potassium 100 Mg Tablet) 100 mg PO DAILY [facility] Last Admin: 12/08/20 09:43 Dose: 100 mg Documented by: Metformin HCl ([facility] Hcl 500 Mg Tablet) [facility] Metoprolol Tartrate (Metoprolol Tartrate 100 Mg Tablet) 150 mg PO BID [facility] Last Admin: 12/08/20 09:43 Dose: 150 mg Documented by: Morphine Sulfate (Morphine 2 Mg/Ml Syringe) 2 mg IV Q3H PRN PRN PRN Reason: Pain Score 6-10 Multivitamins (Multivitamins,Therapeutic Tablet) [facility] Ondansetron HCl (Ondansetron 4 Mg/2 Ml Vial) 4 mg IV Q8H PRN PRN PRN Reason: NAUSEA/VOMITING Pantoprazole Sodium (Pantoprazole Sodium 40 Mg Tablet) 40 mg PO DAILY [facility] Senna/Docusate Sodium (Senna/Docusate Sodium 1 Tablet) 2 tablet PO BID PRN PRN PRN Reason: Constipation Sodium Chloride (0.9% Saline Lock 10 Ml Syringe) 10 - 40 ml IV UD PRN PRN Reason: SALINE FLUSH Warfarin Sodium (Warfarin 0.5 Mg Tablet) 1.5 mg PO TuWeTh@1700 [facility] Warfarin Sodium (Warfarin 3 Mg Tablet) 3 mg PO FrSa@1700 [facility] Discharge Diet: Low fat/ Low Cholesterol, 2000 mg Sodium Diet, Carb Control Diet Discharge Activity: Return to Normal Activity Home Medications: Medications to take at Discharge atorvastatin 10 mg tablet 10 mg PO QHS 10/09/17 metformin 500 mg tablet 500 mg PO BID 10/09/17 metoprolol tartrate 100 mg tablet 150 mg PO BID tab 10/09/17 multivitamin 1 tab PO QDAY 10/09/17 plrwkaktsnp-hzn-ueeopndow-hrb 149-hyalur 500 mg-500 mg-66.7 mg tablet 2 tab PO QDAY ea 10/10/17 Losartan Potassium 100 mg PO DAILY 06/23/18 psyllium husk (aspartame) 3.4 gram/5.8 gram oral powder 1.75 g PO BID g 10/02/18 diltiazem HCl 180 mg capsule,24 hr,extended release 180 mg PO BID #180 cap 04/11/20 warfarin 2 mg tablet 1.5 mg PO QHS tab 06/28/20 Omeprazole 20mg 40 mg PO DAILY 12/07/20 Acetaminophen [Tylenol Tablet] 650 mg PO Q6H PRN PRN tab 12/08/20 Warfarin Sodium 3 mg PO QHS 12/08/20 Other Amb Orders: 30 Day Event [employer] [[facility]] Location: None Selected Primary Care Physician: Nikita Morfin MD [Primary Care Provider] - Please follow up with your Primary Care Physician in: within 1-2 days Please Follow Up With: Mulugeta Pagan MD When: in 2 weeks in the office Disposition: Half-Way facility Minutes spent on discharge:: 40 Patient Condition:: Stable Medical Necessity - Tobacco Use Smoking Status: Never smoker Tobacco Use: Non-smoker Meaningful Use Info Meaningful Use Diagnoses (Choose all that apply): None applicable OBSV E&M: 96369 Observation care discharge
[2020-12-08] MEDS: Warfarin 0.5 MG Tablet 1.5 MG PO (17:00)
--- NOTE | 2020-12-08 17:12 | NURSING ---
report called to Kelly from [facility] at this time
[2020-12-08 17:40] LABS: Bedside Glucose 174 mg/dL (70-110)
== END 2020-12-08 14:49 | disposition skilled nursing facility (03) ==
PROVIDERS: Admitting Provider Hospitalist; PCP Internal Medicine; Visit Provider Internal Medicine
DX: R55 Syncope and collapse (principal); R73.03 Prediabetes; S93.402A Sprain of unspecified ligament of left ankle, initial encounter; M25.062 Hemarthrosis, left knee; I48.0 Paroxysmal atrial fibrillation; I48.92 Unspecified atrial flutter; I12.9 Hypertensive chronic kidney disease with stage 1 through stage 4 chronic kidney disease, or unspecified chronic kidney disease; N18.9 Chronic kidney disease, unspecified; I47.1 Supraventricular tachycardia; M25.462 Effusion, left knee; G47.33 Obstructive sleep apnea (adult) (pediatric); I34.0 Nonrheumatic mitral (valve) insufficiency; M19.90 Unspecified osteoarthritis, unspecified site; E78.5 Hyperlipidemia, unspecified; K21.9 Gastro-esophageal reflux disease without esophagitis; Z79.01 Long term (current) use of anticoagulants; X58.XXXA Exposure to other specified factors, initial encounter; Y93.89 Activity, other specified; Y92.9 Unspecified place or not applicable; Y99.9 Unspecified external cause status; R79.1 Abnormal coagulation profile
CPT/HCPCS: 20610; 80048; 80053; 81001; 82962; 85025; 85610; 87426; 93306; 96360; 96361; 97110; 97162; 97166; 97535; 99218; J7030; Q9957; A4216; C8929; G0378

== ENCOUNTER → 2020-12-12 10:46 | Outpatient (REF) | payer SELFPAY ==
[2020-12-07 01:59] VITALS: BMI 37.5
[2020-12-12 09:26] LABS: Hematocrit 37.3 % (37-47); Hemoglobin 11.8 g/dL (12.0-15.0); Mean Corp Hgb Conc 31.6 g/dL (32-36); Mean Corpuscular Hgb 29.1 pg (27.0-32.0); Mean Corpuscular Volume 91.9 fL (81-99); Mean Platelet Vol. 12.8 fl (6.2-12.0); Platelet Count 246 K/mm3 (150-450); RBC Distribution Width CV 12.7 % (11.6-14.6); RBC Distribution Width SD 42.1 fl (35.1-43.9); Red Blood Count 4.06 M/mm3 (4.2-5.4); White Blood Count 6.6 K/mm3 (4.4-11.0)
[2020-12-12 09:31] LABS: International Normalized Ratio 1.3; Prothrombin Time (Protime)PT. 15.3 SECONDS (11.7-14.9)
[2020-12-12 09:49] LABS: Anion Gap 10 (5-15); BUN 19 mg/dL (7-18); BUN/Creat Ratio 15.4 RATIO (10-20); Calcium,Total 9.5 mg/dL (8.5-10.1); Chloride 106 mmol/L (98-107); Creatinine, Serum 1.23 mg/dL (0.55-1.02); EST Glomerular Filtration Rate 45 mL/min (>60); Est Glom Filt Rate - Afr Amer 55 mL/min (>60); Glucose 142 mg/dL (74-106); Potassium 4.5 mmol/L (3.5-5.1); Sodium Level 139 mmol/L (136-145)
== END ==
LOC: OLS.WHLTCC 10:46
PROVIDERS: PCP Internal Medicine; Visit Provider Family Medicine
DX: N18.9 Chronic kidney disease, unspecified (principal); I48.20 Chronic atrial fibrillation, unspecified; M25.462 Effusion, left knee; M25.062 Hemarthrosis, left knee; S80.912D Unspecified superficial injury of left knee, subsequent encounter; S93.692D Other sprain of left foot, subsequent encounter
CPT/HCPCS: 36415; 80048; 85027; 85610

== ENCOUNTER → 2021-02-28 09:26 | Outpatient (CLI) | payer MEDICARE, SELFPAY ==
[2021-02-20 11:29] VITALS: BMI 36.5
--- NOTE | 2021-02-28 14:34 | PFTCOMP_ITS ---
COMPLETE PULMONARY FUNCTION TEST INTERPRETATION Brief HPI: Patient is a 75 year old female, currently under the care of Dr. Westfall, who presents to [facility] for complete pulmonary function tests secondary to diagnosis of dyspnea. Respiratory therapist reports good effort and reproducible results. Interpretation: Forced expiration spirometry shows no large airways obstructive ventilatory defect with an FEV1 of 95% predicted. There is no significant bronchodilator response by strict ATS criteria. Spirograms are of good quality and plateau normally. The respiratory flow volume loop shows a normal pattern. Lung volumes by body plethysmography show a decreased total lung capacity at 4.34 L, 81% predicted. All other lung volumes are reduced symmetrically. Diffusion capacity by carbon monoxide is decreased at 59% predicted. The airway resistance is elevated. No previous pulmonary function tests were available for review. Impression: Mild restrictive ventilatory defect with a disproportionate reduction in diffusion capacity.
== END ==
PROVIDERS: PCP Internal Medicine; Referring Provider Internal Medicine Cardiovascular Disease; Visit Provider Internal Medicine Cardiovascular Disease
DX: R06.02 Shortness of breath (principal)
CPT/HCPCS: 94060; 94726; 94729

== ENCOUNTER 2021-03-10 14:13 | Outpatient (RCR) | payer MEDICARE, SELFPAY ==
[2020-06-07 09:20] VITALS: BMI 37.2
[2021-02-20 11:29] VITALS: BMI 36.5
[2021-03-10 15:40] LABS: International Normalized Ratio 2.1; Prothrombin Time (Protime)PT. 22.9 SECONDS (11.7-14.9)
== END 2021-03-10 18:00 | disposition home or self-care (01) ==
LOC: MTLAB 14:13
PROVIDERS: Internal Medicine Cardiovascular Disease; Family Provider Internal Medicine; PCP Internal Medicine; Referring Provider Physician Assistant Medical; Visit Provider Physician Assistant Medical
DX: I48.91 Unspecified atrial fibrillation (principal); I48.92 Unspecified atrial flutter; Z79.01 Long term (current) use of anticoagulants
CPT/HCPCS: 36415; 85610

== ENCOUNTER 2021-04-13 09:43 | Outpatient (RCR) | payer MEDICARE, SELFPAY ==
[2021-02-20 11:29] VITALS: BMI 36.5
[2021-03-23 12:17] LABS: International Normalized Ratio 1.2; Prothrombin Time (Protime)PT. 14.6 SECONDS (11.7-14.9)
[2021-03-30 15:24] LABS: International Normalized Ratio 1.7; Prothrombin Time (Protime)PT. 19.5 SECONDS (11.7-14.9)
[2021-04-13 12:06] LABS: Prothrombin Time (Protime)PT. 21.7 SECONDS (11.7-14.9)
== END 2021-04-13 18:00 | disposition home or self-care (01) ==
LOC: MTLAB 09:43
PROVIDERS: Family Provider Internal Medicine; PCP Internal Medicine; Referring Provider Physician Assistant Medical; Visit Provider Physician Assistant Medical
DX: I48.91 Unspecified atrial fibrillation (principal); I48.92 Unspecified atrial flutter; Z79.01 Long term (current) use of anticoagulants
CPT/HCPCS: 36415; 85610

== ENCOUNTER → 2021-04-20 12:19 | Outpatient (CLI) | payer MEDICARE, SELFPAY ==
[2021-04-10 10:47] VITALS: BMI 36.6
[2021-04-20 13:14] VITALS: PULSE 65; PULSE 71; PULSE 74; PULSE 80; PULSE 82; PULSE 84; PULSE 86; PULSE 88; O2SAT 95; O2SAT 96
--- NOTE | 2021-04-21 10:10 | PCM.PSN.6M ---
PSN 6 Minute Walk Test 6 Minute Walk Test 6 Minute Walk Test: 6 Minute Walk Test PSN:6-Minute Walk Test Start: 04/20/21 13:09 Freq: Status: Active Protocol: [id number] Document 04/20/21 13:14 GRISEL (Rec: 04/20/21 13:17 GRISEL [id number]) 6 Minute Walk Test Date Performed 04/20/21 Time Performed 12:30 Height 5 ft 7 in Weight: 235 lb Weight in Pounds 235.[address]: Woody Mcallister Assistive device used: Cane Pre-test Oxygen Delivery Method Room Air Pulse Ox (%) 95 Pulse Rate (60-100 beats/min) 65 Dyspnea Lindsay Scale (0-10) 0 Exertion Lindsay Scale (6-20) 6 1st minute Oxygen Delivery Method Room Air Pulse Ox (%) 96 Pulse Rate (60-100 beats/min) 74 2nd minute Oxygen Delivery Method Room Air Pulse Ox (%) 95 Pulse Rate (60-100 beats/min) 80 3rd minute Oxygen Delivery Method Room Air Pulse Ox (%) 96 Pulse Rate (60-100 beats/min) 82 4th minute Oxygen Delivery Method Room Air Pulse Ox (%) 96 Pulse Rate (60-100 beats/min) 88 Number of Rests Taken 1 5th minute Oxygen Delivery Method Room Air Pulse Ox (%) 95 Pulse Rate (60-100 beats/min) 84 6th minute Oxygen Delivery Method Room Air Pulse Ox (%) 95 Pulse Rate (60-100 beats/min) 86 Dyspnea Lindsay Scale (0-10) 3 Exertion Lindsay Scale (6-20) 12 Post-test Oxygen Delivery Method Room Air Pulse Ox (%) 96 Pulse Rate (60-100 beats/min) 71 Full Laps Walked 11 Partial Lap, Number of Tiles Walked 31 Total Distance Walked (ft) 680 Interpretation Interpretation: The patient ambulated 680 feet over the course of 6 minutes beginning on room air with the use of a cane. Pretesting oxygen saturation was noted to be 95% on room air. With ambulation, the dov oxygen saturation was 95%. Although there was evidence of impaired walk distance, there was no significant exertional oxygen desaturation. Recommendations Recommendations: There is no indication for the use of supplemental oxygen at this time.
== END ==
PROVIDERS: PCP Internal Medicine; Referring Provider Internal Medicine Critical Care Medicine; Visit Provider Internal Medicine Critical Care Medicine
DX: I27.29 Other secondary pulmonary hypertension (principal)
CPT/HCPCS: 94618

== ENCOUNTER → 2021-04-24 20:00 | Outpatient (CLI) | payer MEDICARE, SELFPAY ==
[2021-04-10 10:47] VITALS: BMI 36.6
== END ==
PROVIDERS: PCP Internal Medicine; Referring Provider Internal Medicine Critical Care Medicine; Visit Provider Internal Medicine Critical Care Medicine
DX: G47.33 Obstructive sleep apnea (adult) (pediatric) (principal)
CPT/HCPCS: 95811

== ENCOUNTER 2021-05-01 11:10 | Outpatient (RCR) | payer MEDICARE, SELFPAY ==
[2021-04-10 10:47] VITALS: BMI 36.6
[2021-05-01 12:52] LABS: International Normalized Ratio 2.6; Prothrombin Time (Protime)PT. 26.8 SECONDS (11.7-14.9)
== END 2021-05-01 18:00 | disposition home or self-care (01) ==
LOC: MTLAB 11:10
PROVIDERS: Family Provider Internal Medicine; PCP Internal Medicine; Referring Provider Physician Assistant Medical; Visit Provider Physician Assistant Medical
DX: I48.91 Unspecified atrial fibrillation (principal); I48.92 Unspecified atrial flutter; Z79.01 Long term (current) use of anticoagulants
CPT/HCPCS: 36415; 85610

== ENCOUNTER 2021-06-19 09:20 | Outpatient (RCR) | payer MEDICARE, SELFPAY ==
[2021-04-10 10:47] VITALS: BMI 36.6
[2021-05-22 15:09] LABS: International Normalized Ratio 2.9; Prothrombin Time (Protime)PT. 29.4 SECONDS (11.7-14.9)
[2021-06-19 10:23] LABS: International Normalized Ratio 2.7; Prothrombin Time (Protime)PT. 27.5 SECONDS (11.7-14.9)
== END 2021-06-19 18:00 | disposition home or self-care (01) ==
LOC: MTLAB 09:20
PROVIDERS: Family Provider Internal Medicine; PCP Internal Medicine; Referring Provider Physician Assistant Medical; Visit Provider Physician Assistant Medical
DX: I48.91 Unspecified atrial fibrillation (principal); I48.92 Unspecified atrial flutter; Z79.01 Long term (current) use of anticoagulants
CPT/HCPCS: 36415; 85610

== ENCOUNTER 2021-07-17 11:59 | Outpatient (RCR) | payer MEDICARE, SELFPAY ==
[2021-06-21 01:32] VITALS: BMI 36.6
[2021-07-17 15:14] LABS: International Normalized Ratio 2.9; Prothrombin Time (Protime)PT. 29.5 SECONDS (11.7-14.9)
== END 2021-07-17 18:00 | disposition home or self-care (01) ==
LOC: MTLAB 11:59
PROVIDERS: Family Provider Internal Medicine; PCP Internal Medicine; Referring Provider Physician Assistant Medical; Visit Provider Physician Assistant Medical
DX: I48.91 Unspecified atrial fibrillation (principal); I48.92 Unspecified atrial flutter; Z79.01 Long term (current) use of anticoagulants
CPT/HCPCS: 36415; 85610

== ENCOUNTER 2021-08-17 10:21 | Outpatient (RCR) | payer MEDICARE, SELFPAY ==
[2021-07-21 02:07] VITALS: BMI 36.6
[2021-08-14 12:36] LABS: International Normalized Ratio 3.4; Prothrombin Time (Protime)PT. 33.3 SECONDS (11.7-14.9)
[2021-08-17 12:07] LABS: International Normalized Ratio 3.3
== END 2021-08-20 18:00 | disposition home or self-care (01) ==
LOC: MTLAB 10:21
PROVIDERS: Family Provider Internal Medicine; PCP Internal Medicine; Referring Provider Physician Assistant Medical; Visit Provider Physician Assistant Medical
DX: I48.91 Unspecified atrial fibrillation (principal); I48.92 Unspecified atrial flutter; Z79.01 Long term (current) use of anticoagulants
CPT/HCPCS: 36415; 85610